=== PATIENT | female | born 1965 | race Caucasian/White ===

== ENCOUNTER 2020-04-10 07:06 | Emergency (ER) | payer BC, MEDICAID ==
--- NOTE | 2020-04-10 07:30 | ERPHSYRPT ---
- History of Present Illness Time Seen by Provider: 04/10/20 07:10 Historian: patient Exam Limitations: no limitations Patient Subjective Stated Complaint: PT states "I have been on vacation and I have been in bed most of it. I am on a new blood pressure medicine from Dr. retana and my heart rate has been up lately as well" Triage Nursing Assessment: Pt presented alert and oriented X 3, skin pwd. pt ambulates with an upright steady gait, able to speak in clear full sentences pt in no apparent respiratory distress. Physician History: Patient is a 55-year-old female presents to our ED with complaints of substernal chest pain. Patient describes her pain as an ache that is well localized. No radiation. Patient states "it feels like my heart is pounding". Patient advises that she recently returned from a vacation. Patient states that she did not do much during her vacation because she was not feeling right. Patient also advises that she was recently started on a blood pressure medication. Patient states her blood pressure was 200 systolic during her last primary care office visit. Symptoms are mild to moderate intensity. No specific worsening or improving factors. Patient is a smoker. Patient states she has got a significant family history of cardiovascular disease. Patient is otherwise generally healthy. She also admits that she has been under a considerable amount of stress. Patient voices no other complaints at this time. Timing/Duration: today Activities at Onset: none Quality: aching Location: substernal Chest Pain Radiation: no radiation Severity of Pain-Max: moderate Severity of Pain-Current: mild Modifying Factors: Improves With: nothing Associated Symptoms: nausea, vomiting, cough, No abdominal pain, No shortness of breath, No fever, No swelling/lump in chest Prior Chest Pain/Cardiac Workup: no prior chest pain Nitro Today/Relief: no nitro taken today Aspirin Treatment Today: no aspirin today Allergies/Adverse Reactions: Penicillins Allergy (Severe, Verified 04/10/20 07:14) Swelling Home Medications: Hydrocodone/Acetaminophen [Hydrocodone-Acetamin 7.5-325] 1 tab PO DAILY 04/10/20 [History] Lisinopril/Hydrochlorothiazide [Lisinopril-Hctz 20-12.5 mg Tab] 1 tab PO DAILY 04/10/20 [History] Omeprazole 40 mg PO DAILY 04/10/20 [History] Hx Tetanus, Diphtheria Vaccination/Date Given: No Hx Influenza Vaccination/Date Given: No Hx Pneumococcal Vaccination/Date Given: No Immunizations Up to Date: Yes Travel Risk - International Travel Have you traveled outside of the country in past 3 weeks: No - Coronavirus Screening Are you exhibiting any of the following symptoms?: No Close contact with a COVID-19 positive Pt in past 14-21 Days: No - Review of Systems Constitutional: No Symptoms, No Fever, No Chills Eyes: No Symptoms Ears, Nose, & Throat: No Symptoms Respiratory: No Symptoms, No Cough, No Dyspnea Cardiac: No Symptoms, No Chest Pain, No Edema, No Syncope Abdominal/Gastrointestinal: No Symptoms, No Abdominal Pain, No Nausea, No Vomiting, No Diarrhea Genitourinary Symptoms: No Symptoms, No Dysuria Musculoskeletal: No Symptoms, No Back Pain, No Neck Pain Skin: No Symptoms, No Rash Neurological: No Symptoms, No Dizziness, No Focal Weakness, No Sensory Changes Psychological: No Symptoms Endocrine: No Symptoms Hematologic/Lymphatic: No Symptoms Immunological/Allergic: No Symptoms All Other Systems: Reviewed and Negative - Past Medical History Pertinent Past Medical History: Yes Neurological History: Migraines, Other Cardiac History: Hypertension Respiratory History: No Pertinent History Endocrine Medical History: No Pertinent History Musculoskeletal History: Osteoarthritis, Osteoporosis GI Medical History: GERD - Past Surgical History Past Surgical History: Yes Musculoskeletal: Orthopedic Surgery Female Surgical History: Other Other Surgical History: right hand. uterine cancer - Social History Smoking Status: Current every day smoker How long have you smoked: years Exposure to second hand smoke: Yes Drug Use: none Patient Lives Alone: Yes - Female History Hx Now: No - Nursing Vital Signs Nursing Vital Signs: Initial Vital Signs Temperature 97.5 F 04/10/20 07:07 Pulse Rate 98 H 04/10/20 07:07 Respiratory Rate 18 04/10/20 07:07 Blood Pressure 190/108 04/10/20 07:07 O2 Sat by Pulse Oximetry 100 04/10/20 07:07 Pain Scale Pain Intensity 0 - Physical Exam General Appearance: no apparent distress, alert Eye Exam: PERRL/EOMI, eyes nml inspection Ears, Nose, Throat Exam: normal ENT inspection, moist mucous membranes Neck Exam: normal inspection, non-tender, supple, full range of motion Respiratory Exam: normal breath sounds, lungs clear, No respiratory distress Cardiovascular Exam: regular rate/rhythm, normal heart sounds Gastrointestinal/Abdomen Exam: soft, No tenderness, No mass Back Exam: normal inspection, No CVA tenderness, No vertebral tenderness Extremity Exam: normal inspection, normal range of motion Neurologic Exam: alert, oriented x 3, cooperative, normal mood/affect, sensation nml, No motor deficits Skin Exam: normal color, warm, dry Lymphatic Exam: No adenopathy SpO2 Interpretation: normal SpO2: 100 O2 Delivery: Room Air - Course Nursing assessment & vital signs reviewed: Yes EKG Interpreted by Me: RATE (97), Sinus Rhythm, NORMAL AXIS, NORMAL INTERVALS - Radiology Exams Chest X-ray Interpretation: Teleradiologist Report (lung granuloma, Nl bony thorax, no acute findings. ) - CT Exams Chest CT Interpretation: Tele-radiologist Report (Pulmonary emphysema, lung granuloma, right and left lung nodules both require follow-up. Wedging of T12 had evidence of scoliosis.) Ordered Tests: Active Orders 24 hr Category Date Time Status Public Health Educator STAT Care 04/10/20 07:27 Active EKG-ER Only STAT Care 04/10/20 07:26 Active IV Insertion STAT Care 04/10/20 07:26 Active Pulse Oximetry (ED) STAT Care 04/10/20 07:26 Active CHEST 1 VIEW (PORTABLE) Stat Exams 04/10/20 07:27 Completed CHEST WITH CONTRAST [CT] Stat Exams 04/10/20 08:12 Completed CBC W DIFF Stat Lab 04/10/20 07:17 Completed CMP Stat Lab 04/10/20 07:17 Completed D-DIMER QUANTITATIVE Stat Lab 04/10/20 07:17 Completed MAGNESIUM Stat Lab 04/10/20 07:17 Completed NT PRO BNP Stat Lab 04/10/20 07:17 Completed TROPONIN Q3H Lab 04/10/20 07:17 Completed TROPONIN Q3H Lab 04/10/20 09:45 Completed TROPONIN Q3H Lab 04/10/20 13:30 Ordered TROPONIN Q3H Lab 04/10/20 16:30 Ordered TROPONIN Q3H Lab 04/10/20 19:30 Ordered TSH, 3RD Generation Stat Lab 04/10/20 07:55 Completed UA W/RFX UR CULTURE Stat Lab 04/10/20 09:49 Completed Medication Summary Discontinued Medications Generic Name Dose Route Start Last Admin Trade Name Freq PRN Reason Stop Dose Admin Albuterol/Ipratropium 3 ml 04/10/20 08:23 04/10/20 08:31 Duoneb 0.5-3 Mg/3 Ml Neb IH 04/10/20 08:24 Not Given STAT ONE Albuterol/Ipratropium Confirm 04/10/20 08:37 Duoneb 0.5-3 Mg/3 Ml Neb Administered 04/10/20 08:38 Dose 3 ml IH .STK-MED ONE Potassium Chloride 40 meq 04/10/20 09:28 04/10/20 09:43 Klor Con 10 Meq PO 04/10/20 09:29 40 meq STAT ONE Administration Potassium Chloride Confirm 04/10/20 09:41 Klor Con 10 Meq Administered 04/10/20 09:42 Dose 40 meq PO .STK-MED ONE Prednisone 60 mg 04/10/20 08:23 04/10/20 08:31 Deltasone 20 Mg PO 04/10/20 08:24 Not Given STAT ONE Lab/Rad Data: Laboratory Result Diagrams 04/10/20 07:17 04/10/20 07:17 Laboratory Results 04/10/20 04/10/20 04/10/20 Range/Units 09:49 09:45 07:55 WBC (4.0-10.5) K/mm3 RBC (4.1-5.4) M/mm3 Hgb (12.0-16.0) gm/dl Hct (35-47) % MCV (78-100) fl MCH (26-32) pg MCHC (32-36) g/dl RDW (11.5-14.0) % Plt Count (150-450) K/mm3 MPV (7.5-11.0) fl Gran % (36.0-66.0) % Eos # (Auto) (0-0.5) Absolute Lymphs (auto) (1.0-4.6) Absolute Monos (auto) (0.0-1.3) Lymphocytes % (24.0-44.0) % Monocytes % (0.0-12.0) % Eosinophils % (0.00-5.0) % Basophils % (0.0-0.4) % Absolute Granulocytes (1.4-6.9) Basophils # (0-0.4) D-Dimer (215-500) ng/mL Sodium (137-145) mmol/L Potassium (3.5-5.1) mmol/L Chloride (98-107) mmol/L Carbon Dioxide (22-30) mmol/L Anion Gap (5-15) MEQ/L BUN (7-17) mg/dL Creatinine (0.52-1.04) mg/dL Estimated GFR ML/MIN Glucose (74-106) mg/dL Calcium (8.4-10.2) mg/dL Magnesium (1.6-2.3) mg/dL Total Bilirubin (0.2-1.3) mg/dL AST (14-36) U/L ALT (0-35) U/L Alkaline Phosphatase (38-126) U/L Troponin I < 0.012 (0.000-0.034) ng/mL NT-Pro-B Natriuret Pep (0-900) pg/mL Serum Total Protein (6.3-8.2) g/dL Albumin (3.5-5.0) g/dL TSH 3rd Generation 0.879 (0.47-4.68) mIU/L Urine Color STRAW (YELLOW) Urine Appearance SLIGHTLY CLOUDY (CLEAR) Urine pH 8.0 (5-6) Ur Specific [place] 1.029 (1.005-1.025) Urine Protein NEGATIVE (Negative) Urine Ketones NEGATIVE (NEGATIVE) Urine Blood NEGATIVE (0-5) Julian/ul Urine Nitrite NEGATIVE (NEGATIVE) Urine Bilirubin NEGATIVE (NEGATIVE) Urine Urobilinogen NEGATIVE (0-1) mg/dL Ur Leukocyte Esterase NEGATIVE (NEGATIVE) Urine WBC (Auto) 0-2 (0-5) /HPF Urine RBC (Auto) NONE SEEN (0-2) /HPF U Epithel Cells (Auto) FEW (FEW) /HPF Urine Bacteria (Auto) RARE (NEGATIVE) /HPF Urine Culture Reflexed NO (NO) Urine Glucose NEGATIVE (NEGATIVE) mg/dL 04/10/20 04/10/20 04/10/20 Range/Units 07:17 07:17 07:17 WBC (4.0-10.5) K/mm3 RBC (4.1-5.4) M/mm3 Hgb (12.0-16.0) gm/dl Hct (35-47) % MCV (78-100) fl MCH (26-32) pg MCHC (32-36) g/dl RDW (11.5-14.0) % Plt Count (150-450) K/mm3 MPV (7.5-11.0) fl Gran % (36.0-66.0) % Eos # (Auto) (0-0.5) Absolute Lymphs (auto) (1.0-4.6) Absolute Monos (auto) (0.0-1.3) Lymphocytes % (24.0-44.0) % Monocytes % (0.0-12.0) % Eosinophils % (0.00-5.0) % Basophils % (0.0-0.4) % Absolute Granulocytes (1.4-6.9) Basophils # (0-0.4) D-Dimer 1065 H* (215-500) ng/mL Sodium 140 (137-145) mmol/L Potassium 3.3 L (3.5-5.1) mmol/L Chloride 104 (98-107) mmol/L Carbon Dioxide 26 (22-30) mmol/L Anion Gap 13.5 (5-15) MEQ/L BUN 10 (7-17) mg/dL Creatinine 0.85 (0.52-1.04) mg/dL Estimated GFR > 60.0 ML/MIN Glucose 128 H (74-106) mg/dL Calcium 9.9 (8.4-10.2) mg/dL Magnesium 2.1 (1.6-2.3) mg/dL Total Bilirubin 0.50 (0.2-1.3) mg/dL AST 37 H (14-36) U/L ALT 27 (0-35) U/L Alkaline Phosphatase 153 H (38-126) U/L Troponin I < 0.012 (0.000-0.034) ng/mL NT-Pro-B Natriuret Pep 61.6 (0-900) pg/mL Serum Total Protein 9.1 H (6.3-8.2) g/dL Albumin 4.7 (3.5-5.0) g/dL TSH 3rd Generation (0.47-4.68) mIU/L Urine Color (YELLOW) Urine Appearance (CLEAR) Urine pH (5-6) Ur Specific [place] (1.005-1.025) Urine Protein (Negative) Urine Ketones (NEGATIVE) Urine Blood (0-5) Julian/ul Urine Nitrite (NEGATIVE) Urine Bilirubin (NEGATIVE) Urine Urobilinogen (0-1) mg/dL Ur Leukocyte Esterase (NEGATIVE) Urine WBC (Auto) (0-5) /HPF Urine RBC (Auto) (0-2) /HPF U Epithel Cells (Auto) (FEW) /HPF Urine Bacteria (Auto) (NEGATIVE) /HPF Urine Culture Reflexed (NO) Urine Glucose (NEGATIVE) mg/dL 04/10/20 Range/Units 07:17 WBC 6.9 (4.0-10.5) K/mm3 RBC 4.75 (4.1-5.4) M/mm3 Hgb 15.0 (12.0-16.0) gm/dl Hct 44.4 (35-47) % MCV 93.5 (78-100) fl MCH 31.6 (26-32) pg MCHC 33.8 (32-36) g/dl RDW 13.8 (11.5-14.0) % Plt Count 314 (150-450) K/mm3 MPV 10.7 (7.5-11.0) fl Gran % 52.3 (36.0-66.0) % Eos # (Auto) 0.18 (0-0.5) Absolute Lymphs (auto) 2.67 (1.0-4.6) Absolute Monos (auto) 0.45 (0.0-1.3) Lymphocytes % 38.5 (24.0-44.0) % Monocytes % 6.5 (0.0-12.0) % Eosinophils % 2.6 (0.00-5.0) % Basophils % 0.1 (0.0-0.4) % Absolute Granulocytes 3.63 (1.4-6.9) Basophils # 0.01 (0-0.4) D-Dimer (215-500) ng/mL Sodium (137-145) mmol/L Potassium (3.5-5.1) mmol/L Chloride (98-107) mmol/L Carbon Dioxide (22-30) mmol/L Anion Gap (5-15) MEQ/L BUN (7-17) mg/dL Creatinine (0.52-1.04) mg/dL Estimated GFR ML/MIN Glucose (74-106) mg/dL Calcium (8.4-10.2) mg/dL Magnesium (1.6-2.3) mg/dL Total Bilirubin (0.2-1.3) mg/dL AST (14-36) U/L ALT (0-35) U/L Alkaline Phosphatase (38-126) U/L Troponin I (0.000-0.034) ng/mL NT-Pro-B Natriuret Pep (0-900) pg/mL Serum Total Protein (6.3-8.2) g/dL Albumin (3.5-5.0) g/dL TSH 3rd Generation (0.47-4.68) mIU/L Urine Color (YELLOW) Urine Appearance (CLEAR) Urine pH (5-6) Ur Specific [place] (1.005-1.025) Urine Protein (Negative) Urine Ketones (NEGATIVE) Urine Blood (0-5) Julian/ul Urine Nitrite (NEGATIVE) Urine Bilirubin (NEGATIVE) Urine Urobilinogen (0-1) mg/dL Ur Leukocyte Esterase (NEGATIVE) Urine WBC (Auto) (0-5) /HPF Urine RBC (Auto) (0-2) /HPF U Epithel Cells (Auto) (FEW) /HPF Urine Bacteria (Auto) (NEGATIVE) /HPF Urine Culture Reflexed (NO) Urine Glucose (NEGATIVE) mg/dL - Progress Progress: improved Air Movement: good Progress Note: 04/10/20 11:19 Patient reassessed. Patient has no chest pain. Cardiac troponin negative x2. EKG negative as well. Patient took her blood pressure medication while in our ED. Blood pressure down to 120 systolic. D-dimer positive. Lung nodules observed on her CTA chest. The findings will need to be followed up. I advised patient admission for cardiac rule out/stress test and patient declined admission for further work-up. I spoke to Dr. Retana our patient's primary care physician regarding patient's visit today. In light of her resolved chest pain, negative troponin x2 patient will be discharged home. Dr. Retana is aware of patient's lung nodules as well that will need follow-up. Patient agrees Blood Culture(s) Obtained: No Antibiotics given: No Counseled pt/family regarding: lab results, diagnosis, need for follow-up, rad results, smoking cessation - Departure Departure Disposition: Home Clinical Impression: Chest pain, Pulmonary emphysema, Lung nodule, Scoliosis, Hypokalemia, Hypertension Condition: Stable Critical Care Time: No Referrals: LEANA RETANA MD [Primary Care Provider] - Instructions: Chronic Obstructive Pulmonary Disease Additional Instructions: Please follow-up with Dr. Retana within 48 hours for reevaluation. You will need follow-up regarding the lung nodules observed on today's CT chest. You will also likely require further work-up regarding your chest pain. Discharge/Care Plan TOYIN PEDRO was seen on 04/10/20 in the Emergency Room. The patient was counseled regarding Diagnosis,Lab results, Imaging studies, need for follow up and when to return to the Emergency Room. Prescriptions given: Discharge Note I have spoken with the patient and/or caregivers. I have explained the patient's condition, diagnosis and treatment plan based on the information available to me at this time. I have answered the patient's and/or caregiver's questions and addressed any concerns. The patient and/or caregivers have as good understanding of the patient's diagnosis, condition and treatment plan as can be expected at this point. The vital signs have been stable. The patient's condition is stable and appropriate for discharge from the emergency department. The patient will pursue further outpatient evaluation with the primary care physician or other designated or consulting physician as outlined in the discharge instructions. The patient and/or caregivers are agreeable to this plan of care and follow-up instructions have been explained in detail. The patient and/or caregivers have received these instruction. The patient/and or caregivers are aware that any significant change in condition or worsening of symptoms should prompt an immediate return to this or the closest emergency department or call 911.
[2020-04-10 07:41] LABS: Absolute Neutrophil Ct (ANC) 3.63 (1.4-6.9); BASOPHIL % 0.1 % (0.0-0.4); Basophil (Absolute #) 0.01 (0-0.4); Eosinophil % 2.6 % (0.00-5.0); Eosinophil (Absolute #) 0.18 (0-0.5); Hematocrit 44.4 % (35-47); Lymphocyte (Absolute #) 2.67 (1.0-4.6); Lymphocytes % 38.5 % (24.0-44.0); Mean Cell Volume 93.5 fl (78-100); Mean Corpuscular Hemoglobin 31.6 pg (26-32); Mean Corpuscular Hgb Concent. 33.8 g/dl (32-36); Mean Platelet Volume 10.7 fl (7.5-11.0); Monocyte (Absolute #) 0.45 (0.0-1.3); Monocytes % 6.5 % (0.0-12.0); Neutrophil % 52.3 % (36.0-66.0); Platelet Count 314 K/mm3 (150-450); Red Blood Count 4.75 M/mm3 (4.1-5.4); Red Cell Distribution Width 13.8 % (11.5-14.0); White Blood Count 6.9 K/mm3 (4.0-10.5)
[2020-04-10 08:00] LABS: ALBUMIN 4.7 g/dL (3.5-5.0); ALKALINE PHOSPHATASE 153 U/L (38-126); ANION GAP 13.5 MEQ/L (5-15); BLOOD UREA NITROGEN 10 mg/dL (7-17); CHLORIDE 104 mmol/L (98-107); Calcium 9.9 mg/dL (8.4-10.2); Carbon Dioxide 26 mmol/L (22-30); Creatinine 1 0.85 mg/dL (0.52-1.04); Glucose 128 mg/dL (74-106); MAGNESIUM 2.1 mg/dL (1.6-2.3); NT PRO BNP 61.6 pg/mL (0-900); Potassium 3.3 mmol/L (3.5-5.1); SGOT/AST 37 U/L (14-36); SGPT/ALT 27 U/L (0-35); SODIUM 140 mmol/L (137-145); Total Protein 9.1 g/dL (6.3-8.2)
[2020-04-10] MEDS ORDERED: DELTASONE 20 MG PO ONE (08:23)
[2020-04-10] MEDS ORDERED: DUONEB 0.5-3 MG/3 ml Neb IH ONE ×2 (08:23→08:37)
--- NOTE | 2020-04-10 09:08 | XRAY ---
Indication: Chest pain and elevated d-dimer. Multiple contiguous images obtained through the chest using 80 cc Isovue 370 contrast and PE protocol. Comparison: None There is good opacification of the pulmonary arteries to include the lobar and segmental branches. No filling defect or pulmonary embolus. Heart is not enlarged. Aorta is mildly arteriosclerotic without aneurysm/dissection. No pathologic mediastinal/hilar lymphadenopathy. Lungs are inflated with mild diffuse pulmonary emphysema, minimal bilateral dependent atelectasis, and 2 left lower lobe calcified granulomas. 7 mm noncalcified subpleural nodule in the right lower lobe (image 53, series 3), 6 mm noncalcified subpleural nodule right lower lobe (image 36), 7 mm noncalcified subpleural nodule left lower lobe (image 54), and 5 mm noncalcified subpleural nodule left lower lobe (image 54). No infiltrate or effusion. Bony thorax intact with minimal degenerative changes throughout the spine and minimal double curvature scoliosis. T12 segment demonstrates remote appearing minimal anterior wedging either developmental versus old fracture. Limited upper abdomen unremarkable. Impression: 1. Negative pulmonary embolus. No acute cardiopulmonary normalities. 2. Diffuse pulmonary emphysema. 3. A few bilateral noncalcified micronodules as detailed. Findings could be granulomatous as there is evidence for old granulomatous disease elsewhere. Malignancy not completely excluded. Outside comparison studies would be of benefit. If not, recommend follow-up per Fleischner guidelines. 4. Chronic bony findings.
--- NOTE | 2020-04-10 09:08 | XRAY ---
Indication: Chest pain. Comparison: March 09, 2015. Portable chest again demonstrates normal heart and lungs with left lung calcified granuloma. Bony thorax intact again with mild double curvature scoliosis. No new/acute findings.
[2020-04-10] MEDS ORDERED: Klor Con 10 MEQ PO ONE ×2 (09:28→09:41)
[2020-04-10 10:02] VITALS: PULSE 88
[2020-04-10 10:05] LABS: Appearance SLIGHTLY CLOUDY (CLEAR); Bacteria RARE /HPF (NEGATIVE); Bilirubin NEGATIVE (NEGATIVE); Blood NEGATIVE Ery/ul (0-5); Epithelial Cells FEW /HPF (FEW); Glucose NEGATIVE (NEGATIVE); Ketones NEGATIVE (NEGATIVE); Leukocyte Esterase NEGATIVE (NEGATIVE); Nitrite NEGATIVE (NEGATIVE); Protein,Urine Dip NEGATIVE (Negative); Specific Gravity 1.029 (1.005-1.025); Urobilinogen NEGATIVE mg/dL (0-1); WBC 0-2 /HPF (0-5)
[2020-04-10 10:28] LABS: RBC NONE SEEN /HPF (0-2)
[2020-04-10 11:20] VITALS: BP 117/77; O2SAT 100
== END 2020-04-10 11:28 | disposition home or self-care (01) ==
LOC: ED 07:06
DX: R07.9 Chest pain, unspecified (principal); J43.9 Emphysema, unspecified; R91.8 Other nonspecific abnormal finding of lung field; M41.9 Scoliosis, unspecified; E87.6 Hypokalemia; I10 Essential (primary) hypertension; F17.210 Nicotine dependence, cigarettes, uncomplicated; Z79.899 Other long term (current) drug therapy
CPT/HCPCS: 36000; 36415; 71045; 71260; 80053; 81001; 83735; 83880; 84443; 84484; 85025; 85379; 93005; 93041; 94760; 99284; A9270-GY

== ENCOUNTER 2020-04-12 12:24 | Emergency (ER) | payer MEDICAID ==
--- NOTE | 2020-04-12 12:40 | ERPHSYRPT ---
- History of Present Illness Time Seen by Provider: 04/12/20 12:30 Patient Subjective Stated Complaint: pt here for chest pain to center of chest with sob and dizziness, she was seen here friday night for the same thng Triage Nursing Assessment: pt alert, resp easy, skin w/d/p. has face mask on, no edema,no cough Physician History: Patient is a 55-year-old female who presents to our ED with complaints of chest pain shortness of breath and dizziness. Chest pain described as an ache that is substernal. Patient was in our ED 2 days ago for the same. Patient was worked up including 2- troponins and a CTA of the chest. Patient was discharged and supposed to follow-up with her primary care doctor but has not done so. Patient states she was at work when her symptoms started. Patient became very concerned and came to our ED for further evaluation and treatment. Symptoms are mild to moderate in intensity. No specific worsening improving factors. Patient is a smoker. Patient also advised that she is got a significant family history of cardiovascular disease. Patient voices no other complaints or concerns at this time. Timing/Duration: today Activities at Onset: activity Quality: aching Location: substernal Chest Pain Radiation: no radiation Severity of Pain-Max: moderate Severity of Pain-Current: mild Modifying Factors: Improves With: exertion Associated Symptoms: shortness of breath, dizziness, No fever Nitro Today/Relief: no nitro taken today Aspirin Treatment Today: no aspirin today Allergies/Adverse Reactions: Penicillins Allergy (Severe, Verified 04/12/20 12:34) Swelling Home Medications: Hydrocodone/Acetaminophen [Hydrocodone-Acetamin 7.5-325] 1 tab PO DAILY 04/10/20 [History] Lisinopril/Hydrochlorothiazide [Lisinopril-Hctz 20-12.5 mg Tab] 1 tab PO DAILY 04/10/20 [History] Omeprazole 40 mg PO DAILY 04/10/20 [History] Potassium Chloride 1 ea DAILY 04/12/20 [History] Hx Tetanus, Diphtheria Vaccination/Date Given: No Hx Influenza Vaccination/Date Given: No Hx Pneumococcal Vaccination/Date Given: No Immunizations Up to Date: Yes Travel Risk - International Travel Have you traveled outside of the country in past 3 weeks: No - Coronavirus Screening Are you exhibiting any of the following symptoms?: Yes Symptoms: Shortness of Breath Close contact with a COVID-19 positive Pt in past 14-21 Days: No - Review of Systems Constitutional: No Symptoms, No Fever, No Chills Eyes: No Symptoms Ears, Nose, & Throat: No Symptoms Respiratory: No Symptoms, No Cough, No Dyspnea Cardiac: No Symptoms, No Chest Pain, No Edema, No Syncope Abdominal/Gastrointestinal: No Symptoms, No Abdominal Pain, No Nausea, No Vomiting, No Diarrhea Genitourinary Symptoms: No Symptoms, No Dysuria Musculoskeletal: No Symptoms, No Back Pain, No Neck Pain Skin: No Symptoms, No Rash Neurological: No Symptoms, No Dizziness, No Focal Weakness, No Sensory Changes Psychological: No Symptoms Endocrine: No Symptoms Hematologic/Lymphatic: No Symptoms Immunological/Allergic: No Symptoms All Other Systems: Reviewed and Negative - Past Medical History Pertinent Past Medical History: Yes Neurological History: Migraines, Other Cardiac History: Hypertension Respiratory History: No Pertinent History Endocrine Medical History: No Pertinent History Musculoskeletal History: Osteoarthritis, Osteoporosis GI Medical History: GERD - Past Surgical History Past Surgical History: Yes Musculoskeletal: Orthopedic Surgery Female Surgical History: Other Other Surgical History: left hand. uterine cancer ablation - Social History Smoking Status: Current every day smoker How long have you smoked: years Exposure to second hand smoke: Yes Drug Use: none Patient Lives Alone: Yes - Female History Hx Last Menstrual Period: post Hx Now: No - Nursing Vital Signs Nursing Vital Signs: Initial Vital Signs Temperature 97.1 F 04/12/20 12:27 Pulse Rate 90 04/12/20 12:27 Respiratory Rate 16 04/12/20 12:27 Blood Pressure 124/77 04/12/20 12:27 O2 Sat by Pulse Oximetry 100 04/12/20 12:27 Pain Scale Pain Intensity 0 - Physical Exam General Appearance: no apparent distress, alert Eye Exam: PERRL/EOMI, eyes nml inspection Ears, Nose, Throat Exam: normal ENT inspection, moist mucous membranes Neck Exam: normal inspection, non-tender, supple, full range of motion Respiratory Exam: normal breath sounds, lungs clear, No respiratory distress Cardiovascular Exam: regular rate/rhythm, normal heart sounds Gastrointestinal/Abdomen Exam: soft, No tenderness, No mass Back Exam: normal inspection, No CVA tenderness, No vertebral tenderness Extremity Exam: normal inspection, normal range of motion Neurologic Exam: alert, oriented x 3, cooperative, normal mood/affect, sensation nml, No motor deficits Skin Exam: normal color, warm, dry Lymphatic Exam: No adenopathy SpO2 Interpretation: normal SpO2: 100 O2 Delivery: Room Air - Course Nursing assessment & vital signs reviewed: Yes EKG Interpreted by Me: RATE (86), Sinus Rhythm, NORMAL AXIS, NORMAL INTERVALS - Radiology Exams Chest X-ray Interpretation: Teleradiologist Report (Audible chest continues to demonstrate normal heart and lungs with incidental left lung calcified granuloma. No new acute findings.) Ordered Tests: Active Orders 24 hr Category Date Time Status Services Coordinator STAT Care 04/12/20 13:42 Active EKG-ER Only STAT Care 04/12/20 13:41 Active IV Insertion STAT Care 04/12/20 13:41 Active Pulse Oximetry (ED) STAT Care 04/12/20 13:41 Active CHEST 1 VIEW (PORTABLE) Stat Exams 04/12/20 13:42 Completed CBC W DIFF Stat Lab 04/12/20 14:05 Completed CMP Stat Lab 04/12/20 14:05 Completed LIPASE Stat Lab 04/12/20 14:05 Completed MAGNESIUM Stat Lab 04/12/20 14:05 Completed NT PRO BNP Stat Lab 04/12/20 14:05 Completed TROPONIN Q3H Lab 04/12/20 14:05 Completed TROPONIN Q3H Lab 04/12/20 16:40 Completed TROPONIN Q3H Lab 04/12/20 19:45 Ordered TROPONIN Q3H Lab 04/12/20 22:45 Ordered TROPONIN Q3H Lab 04/13/20 01:45 Ordered UA W/RFX UR CULTURE Stat Lab 04/12/20 15:36 Completed Transfer Order Routine Transfer 04/12/20 Ordered Medication Summary Generic Name Dose Route Start Last Admin Trade Name Tawny PRN Reason Stop Dose Admin Levofloxacin/Dextrose 500 mg in 100 mls @ 100 mls/hr 04/12/20 17:44 04/12/20 18:15 Levofloxacin 500mg/100ml D5w IV 04/12/20 18:43 Not Given STAT STA Heparin Sodium/Dextrose 250 mls @ 10 mls/hr 04/12/20 18:00 Heparin 25,000 Units/D5w 250ml Premix IV 05/12/20 17:59 .Q24H ZAID Heparin Sodium/Dextrose 25,000 units in 250 mls @ 10 mls/hr 04/12/20 18:00 Heparin 25,000 Units/D5w 250ml Premix IV 05/12/20 17:59 .Q24H ZAID Discontinued Medications Generic Name Dose Route Start Last Admin Trade Name Tawny PRN Reason Stop Dose Admin Aspirin 324 mg 04/12/20 13:40 04/12/20 13:54 Baby Aspirin 81 Mg Chew PO 04/12/20 13:41 324 mg STAT ONE Administration Aspirin Confirm 04/12/20 13:48 Baby Aspirin 81 Mg Chew Administered 04/12/20 13:49 Dose 324 mg .ROUTE .STK-MED ONE Ciprofloxacin Confirm 04/12/20 17:37 Cipro 500 Mg Administered 04/12/20 17:38 Dose 500 mg .ROUTE .STK-MED ONE Heparin Sodium/Dextrose 250 mls @ 10 mls/hr 04/12/20 18:00 Heparin 25,000 Units/D5w 250ml Premix IV 05/12/20 17:59 .Q24H ZAID Levofloxacin/Dextrose Confirm 04/12/20 17:53 Levofloxacin 500mg/100ml D5w Administered 04/12/20 17:54 Dose 500 mg in 100 mls @ ud IV .STK-MED ONE Morphine Sulfate 2 mg 04/12/20 13:39 04/12/20 13:54 Morphine Sulfate 2 Mg Inj IV 04/12/20 13:40 2 mg STAT ONE Administration Morphine Sulfate Confirm 04/12/20 13:48 Morphine Sulfate 2 Mg Inj Administered 04/12/20 13:49 Dose 2 mg .ROUTE .STK-MED ONE Nitroglycerin 1 gm 04/12/20 17:38 04/12/20 18:00 Nitro-Bid 2% Ud Packets TOP 04/12/20 17:39 1 gm STAT ONE Administration Nitroglycerin Confirm 04/12/20 17:53 Nitro-Bid 2% Ud Packets Administered 04/12/20 17:54 Dose 1 gm .ROUTE .STK-MED ONE Lab/Rad Data: Laboratory Result Diagrams 04/12/20 14:05 04/12/20 14:05 Laboratory Results 04/12/20 04/12/20 04/12/20 Range/Units 16:40 15:36 14:05 WBC (4.0-10.5) K/mm3 RBC (4.1-5.4) M/mm3 Hgb (12.0-16.0) gm/dl Hct (35-47) % MCV (78-100) fl MCH (26-32) pg MCHC (32-36) g/dl RDW (11.5-14.0) % Plt Count (150-450) K/mm3 MPV (7.5-11.0) fl Gran % (36.0-66.0) % Eos # (Auto) (0-0.5) Absolute Lymphs (auto) (1.0-4.6) Absolute Monos (auto) (0.0-1.3) Lymphocytes % (24.0-44.0) % Monocytes % (0.0-12.0) % Eosinophils % (0.00-5.0) % Basophils % (0.0-0.4) % Absolute Granulocytes (1.4-6.9) Basophils # (0-0.4) Sodium (137-145) mmol/L Potassium (3.5-5.1) mmol/L Chloride (98-107) mmol/L Carbon Dioxide (22-30) mmol/L Anion Gap (5-15) MEQ/L BUN (7-17) mg/dL Creatinine (0.52-1.04) mg/dL Estimated GFR ML/MIN Glucose (74-106) mg/dL Calcium (8.4-10.2) mg/dL Magnesium (1.6-2.3) mg/dL Total Bilirubin (0.2-1.3) mg/dL AST (14-36) U/L ALT (0-35) U/L Alkaline Phosphatase (38-126) U/L Troponin I 0.075 H* < 0.012 (0.000-0.034) ng/mL NT-Pro-B Natriuret Pep (0-900) pg/mL Serum Total Protein (6.3-8.2) g/dL Albumin (3.5-5.0) g/dL Lipase (23-300) U/L Urine Color YELLOW (YELLOW) Urine Appearance SLIGHTLY CLOUDY (CLEAR) Urine pH 5.0 (5-6) Ur Specific [place] 1.013 (1.005-1.025) Urine Protein NEGATIVE (Negative) Urine Ketones NEGATIVE (NEGATIVE) Urine Blood NEGATIVE (0-5) Julian/ul Urine Nitrite NEGATIVE (NEGATIVE) Urine Bilirubin NEGATIVE (NEGATIVE) Urine Urobilinogen NEGATIVE (0-1) mg/dL Ur Leukocyte Esterase MODERATE (NEGATIVE) Urine WBC (Auto) 11-15 (0-5) /HPF Urine RBC (Auto) 0-2 (0-2) /HPF U Hyaline Cast (Auto) 6-10 (0-2) /LPF U Epithel Cells (Auto) FEW (FEW) /HPF Urine Bacteria (Auto) RARE (NEGATIVE) /HPF U Non-Squamous Epi Cells RARE (FEW) /HPF Other Casts (Auto) 10-25 (NEGATIVE) /LPF Urine Mucus (Auto) SLIGHT (NEGATIVE) /HPF Urine Culture Reflexed NO (NO) Urine Glucose NEGATIVE (NEGATIVE) mg/dL 04/12/20 04/12/20 Range/Units 14:05 14:05 WBC 9.1 (4.0-10.5) K/mm3 RBC 4.03 L (4.1-5.4) M/mm3 Hgb 12.8 (12.0-16.0) gm/dl Hct 37.7 (35-47) % MCV 93.5 (78-100) fl MCH 31.8 (26-32) pg MCHC 34.0 (32-36) g/dl RDW 13.4 (11.5-14.0) % Plt Count 282 (150-450) K/mm3 MPV 10.4 (7.5-11.0) fl Gran % 72.7 H (36.0-66.0) % Eos # (Auto) 0.09 (0-0.5) Absolute Lymphs (auto) 1.65 (1.0-4.6) Absolute Monos (auto) 0.72 (0.0-1.3) Lymphocytes % 18.2 L (24.0-44.0) % Monocytes % 7.9 (0.0-12.0) % Eosinophils % 1.0 (0.00-5.0) % Basophils % 0.2 (0.0-0.4) % Absolute Granulocytes 6.60 (1.4-6.9) Basophils # 0.02 (0-0.4) Sodium 135 L (137-145) mmol/L Potassium 4.3 (3.5-5.1) mmol/L Chloride 101 (98-107) mmol/L Carbon Dioxide 26 (22-30) mmol/L Anion Gap 11.8 (5-15) MEQ/L BUN 12 (7-17) mg/dL Creatinine 1.15 H (0.52-1.04) mg/dL Estimated GFR 52.5 ML/MIN Glucose 98 (74-106) mg/dL Calcium 9.8 (8.4-10.2) mg/dL Magnesium 1.9 (1.6-2.3) mg/dL Total Bilirubin 0.50 (0.2-1.3) mg/dL AST 21 (14-36) U/L ALT 18 (0-35) U/L Alkaline Phosphatase 100 (38-126) U/L Troponin I (0.000-0.034) ng/mL NT-Pro-B Natriuret Pep 131 (0-900) pg/mL Serum Total Protein 8.2 (6.3-8.2) g/dL Albumin 4.4 (3.5-5.0) g/dL Lipase 78 (23-300) U/L Urine Color (YELLOW) Urine Appearance (CLEAR) Urine pH (5-6) Ur Specific [place] (1.005-1.025) Urine Protein (Negative) Urine Ketones (NEGATIVE) Urine Blood (0-5) Julian/ul Urine Nitrite (NEGATIVE) Urine Bilirubin (NEGATIVE) Urine Urobilinogen (0-1) mg/dL Ur Leukocyte Esterase (NEGATIVE) Urine WBC (Auto) (0-5) /HPF Urine RBC (Auto) (0-2) /HPF U Hyaline Cast (Auto) (0-2) /LPF U Epithel Cells (Auto) (FEW) /HPF Urine Bacteria (Auto) (NEGATIVE) /HPF U Non-Squamous Epi Cells (FEW) /HPF Other Casts (Auto) (NEGATIVE) /LPF Urine Mucus (Auto) (NEGATIVE) /HPF Urine Culture Reflexed (NO) Urine Glucose (NEGATIVE) mg/dL - Progress Progress: improved Air Movement: good (She has Medicare and some other insurance so wants to go ou t-of-pocket either place she does not) Progress Note: 04/12/20 18:20 Patient reassessed. Patient states her chest pain starting to recur. Initial troponin was within normal limits. Repeat troponin is positive at 0.075. Nitropaste applied. Heparin drip initiated. Patient received aspirin. We will transfer patient to [facility] with a diagnosis of NSTEMI. Plan of care discussed with patient. She agrees to transfer to [facility] for further evaluation and treatment. Patient was found to have urinary tract infection. Levaquin was initiated. Patient allergic to penicillin. Patient began to experience itching sensation at the extremity receiving the infusion. The infusion was immediately stopped. Patient was assessed. No compromise breathing no hives. No intraoral lesions. Patient's allergy profile was updated. Case discussed with Dr. Hernandez, [facility] ER physician who accepts transfer. 04/12/20 18:21 Blood Culture(s) Obtained: No Antibiotics given: No Counseled pt/family regarding: lab results, diagnosis, need for follow-up, rad results - Departure Departure Disposition: Transfer Clinical Impression: NSTEMI (non-ST elevated myocardial infarction), Cardiac enzymes elevated, Chest pain, UTI (urinary tract infection) Condition: Stable Critical Care Time: Yes Referrals: LEANA RETANA MD [Primary Care Provider] -
[2020-04-12] MEDS ORDERED: MORPHINE SULFATE 2 MG INJ IV ONE (13:39)
[2020-04-12] MEDS ORDERED: BABY ASPIRIN 81 MG CHEW PO ONE (13:40)
[2020-04-12] MEDS ORDERED: BABY ASPIRIN 81 MG CHEW ONE (13:48)
[2020-04-12] MEDS ORDERED: MORPHINE SULFATE 2 MG INJ ONE (13:48)
[2020-04-12 14:09] LABS: BASOPHIL % 0.2 % (0.0-0.4); Basophil (Absolute #) 0.02 (0-0.4); Eosinophil (Absolute #) 0.09 (0-0.5); Hematocrit 37.7 % (35-47); Hemoglobin 12.8 gm/dl (12.0-16.0); Lymphocyte (Absolute #) 1.65 (1.0-4.6); Lymphocytes % 18.2 % (24.0-44.0); Mean Cell Volume 93.5 fl (78-100); Mean Corpuscular Hemoglobin 31.8 pg (26-32); Mean Platelet Volume 10.4 fl (7.5-11.0); Monocyte (Absolute #) 0.72 (0.0-1.3); Monocytes % 7.9 % (0.0-12.0); Neutrophil % 72.7 % (36.0-66.0); Platelet Count 282 K/mm3 (150-450); Red Blood Count 4.03 M/mm3 (4.1-5.4); Red Cell Distribution Width 13.4 % (11.5-14.0); White Blood Count 9.1 K/mm3 (4.0-10.5)
--- NOTE | 2020-04-12 14:15 | XRAY ---
Indication: Chest pain. Comparison: April 10, 2020. Portable chest continues to demonstrate normal heart and lungs with incidental left lung calcified granuloma. No new/acute findings.
[2020-04-12 14:29] LABS: ALBUMIN 4.4 g/dL (3.5-5.0); ANION GAP 11.8 MEQ/L (5-15); BILIRUBIN,TOTAL 0.5 mg/dL (0.2-1.3); Calcium 9.8 mg/dL (8.4-10.2); Creatinine 1 1.15 mg/dL (0.52-1.04); MAGNESIUM 1.9 mg/dL (1.6-2.3); Potassium 4.3 mmol/L (3.5-5.1); Total Protein 8.2 g/dL (6.3-8.2)
[2020-04-12 16:06] LABS: Appearance SLIGHTLY CLOUDY (CLEAR); Bacteria RARE /HPF (NEGATIVE); Bilirubin NEGATIVE (NEGATIVE); Blood NEGATIVE Ery/ul (0-5); Epithelial Cells FEW /HPF (FEW); Glucose NEGATIVE (NEGATIVE); Ketones NEGATIVE (NEGATIVE); Leukocyte Esterase MODERATE (NEGATIVE); Mucus SLIGHT /HPF (NEGATIVE); Nitrite NEGATIVE (NEGATIVE); Non-Squamous Epithelial Cells RARE /HPF (FEW); Protein,Urine Dip NEGATIVE (Negative); RBC 0-2 /HPF (0-2); Specific Gravity 1.013 (1.005-1.025); Urobilinogen NEGATIVE mg/dL (0-1)
[2020-04-12 17:33] VITALS: BP 104/56
[2020-04-12] MEDS ORDERED: Cipro 500 MG ONE (17:37)
[2020-04-12] MEDS ORDERED: NITRO-BID 2% UD PACKETS TOP ONE (17:38)
[2020-04-12] MEDS ORDERED: Levofloxacin 500MG/100ML D5W 0 MG/0 ML BAG IV ONE (17:53)
[2020-04-12] MEDS ORDERED: NITRO-BID 2% UD PACKETS ONE (17:53)
[2020-04-12] MEDS ORDERED: Heparin 25,000 units/D5W 250ML PREMIX 250 ML IV SCH ×2 (18:00)
[2020-04-12] MEDS ORDERED: Heparin 25,000 units/D5W 250ML PREMIX 25,000 UNITS/250 ML BAG IV SCH (18:00)
[2020-04-12] MEDS: Levofloxacin 500MG/100ML D5W 500 MG/100 ML BAG IV STA ×2 (18:05→18:15)
[2020-04-12 19:16] VITALS: PULSE 74; O2SAT 98
== END 2020-04-12 19:19 | disposition home or self-care (01) ==
LOC: ED 12:24
DX: I21.3 ST elevation (STEMI) myocardial infarction of unspecified site (principal); R79.89 Other specified abnormal findings of blood chemistry; R07.9 Chest pain, unspecified; N39.0 Urinary tract infection, site not specified
CPT/HCPCS: 36000; 36415; 71045; 80053; 81001; 83690; 83735; 83880; 84484; 85025; 93005; 93041; 94760; 96365; 96374; 99285; J1644; J1956; J2270; A9270-GY

== ENCOUNTER 2020-04-21 17:42 | Emergency (ER) | payer BC, MEDICAID ==
[2020-04-21] MEDS ORDERED: NITRO-BID 2% UD PACKETS TOP ONE (17:49)
[2020-04-21] MEDS ORDERED: Zofran 4 MG/2 ML VIAL IV ONE (17:49)
[2020-04-21] MEDS ORDERED: MORPHINE SULFATE 4 MG INJ IV ONE (17:49)
[2020-04-21] MEDS ORDERED: Sodium Chloride 0.9% 1000 ML 1,000 ML IV SCH ×2 (18:00→21:45)
[2020-04-21] MEDS ORDERED: Zofran 4 MG/2 ML VIAL ONE (18:02)
[2020-04-21] MEDS ORDERED: NITRO-BID 2% UD PACKETS ONE (18:02)
[2020-04-21] MEDS ORDERED: MORPHINE SULFATE 4 MG INJ ONE (18:03)
[2020-04-21] MEDS ORDERED: Sodium Chloride 0.9% 1000 ML 1,000 ML ONE ×2 (18:03→21:44)
[2020-04-21 18:13] LABS: Absolute Neutrophil Ct (ANC) 4.58 (1.4-6.9); BASOPHIL % 0.2 % (0.0-0.4); Basophil (Absolute #) 0.02 (0-0.4); Eosinophil % 2.8 % (0.00-5.0); Eosinophil (Absolute #) 0.23 (0-0.5); Hematocrit 32.3 % (35-47); Hemoglobin 10.6 gm/dl (12.0-16.0); Lymphocyte (Absolute #) 2.84 (1.0-4.6); Lymphocytes % 34.1 % (24.0-44.0); Mean Cell Volume 96.7 fl (78-100); Mean Corpuscular Hemoglobin 31.7 pg (26-32); Mean Corpuscular Hgb Concent. 32.8 g/dl (32-36); Mean Platelet Volume 10.5 fl (7.5-11.0); Monocyte (Absolute #) 0.66 (0.0-1.3); Monocytes % 7.9 % (0.0-12.0); Platelet Count 330 K/mm3 (150-450); Red Blood Count 3.34 M/mm3 (4.1-5.4); Red Cell Distribution Width 13.6 % (11.5-14.0); White Blood Count 8.3 K/mm3 (4.0-10.5)
[2020-04-21 18:27] LABS: INR 1.11 (0.8-3.0); PROTIME 12.6 SECONDS (9.95-12.35)
[2020-04-21 18:30] LABS: PTT 26.8 SECONDS (25.3-37.0)
[2020-04-21] MEDS ORDERED: Keppra 500 MG/5 ML*** 1,000 MG in D5w 100ML Mini Bag 100 ML 100 ML IV ONE (18:35)
[2020-04-21 18:37] LABS: ALBUMIN 4.2 g/dL (3.5-5.0); ALKALINE PHOSPHATASE 105 U/L (38-126); ANION GAP 19.7 MEQ/L (5-15); BLOOD UREA NITROGEN 8 mg/dL (7-17); CHLORIDE 103 mmol/L (98-107); Calcium 9.1 mg/dL (8.4-10.2); Carbon Dioxide 18 mmol/L (22-30); Creatinine 1 1.01 mg/dL (0.52-1.04); Glucose 130 mg/dL (74-106); NT PRO BNP 262 pg/mL (0-900); Potassium 3.4 mmol/L (3.5-5.1); SGOT/AST 25 U/L (14-36); SGPT/ALT 13 U/L (0-35); SODIUM 137 mmol/L (137-145); Total Protein 7.7 g/dL (6.3-8.2)
[2020-04-21] MEDS ORDERED: Keppra 500 MG/5 ML ONE (18:37)
[2020-04-21] MEDS ORDERED: D5w 100ML Mini Bag 100 ML 100 ML IV ONE (18:38)
--- NOTE | 2020-04-21 18:40 | ERPHSYRPT ---
- History of Present Illness Time Seen by Provider: 04/21/20 17:45 Historian: patient Exam Limitations: no limitations Patient Subjective Stated Complaint: Pt states "My chest and back really hurt.". Medics state "we were dispatched for chest pain, pt had what appeared to be a seizure and then stopped breathing for approx 20 seconds and we had to bag her. Pt was then screaming in pain in her back." Triage Nursing Assessment: ON [place] pt was screaming in the background. PT arrived alert and oriented X 3, skin pwd Pt able to speak in clear full sentences pt grunting and unable to sit still. Pt had io in left proximal tib, 20 g iv in pt left ac. PT in no apparent respriatory distress. Physician History: 55 years old female chin, congestive heart failure, tobacco abuse presented in the ER with chief complaint of sudden onset central chest pain while she was driving back home from [employer]. Patient reports having intermittent chest pain for the last couple of weeks, was recently admitted at [facility] where she had a stress test done. Patient describes this as a sharp shooting/stabbing pain, moderate to severe intensity, taken 3 nitros and started to ease up. On the way to the ER patient had a episode of stiffness all over her body and quit breathing witnessed by EMS and was back for almost 20 seconds and she came back on her own. Currently patient rates 4/10 intensity pain without any shortness of breath, palpitations or wheezing. Denies fever chills but has mild chronic cough. Timing/Duration: hour(s) (2), sudden, worse Activities at Onset: rest Quality: sharpness, stabbing Location: central Chest Pain Radiation: no radiation Severity of Pain-Max: severe Severity of Pain-Current: moderate Modifying Factors: Improves With: nitroglycerin Prior Chest Pain/Cardiac Workup: stress test Nitro Today/Relief: 0.4 mg x 3 Aspirin Treatment Today: 81 mg x 4 Allergies/Adverse Reactions: Penicillins Allergy (Severe, Verified 04/12/20 12:34) Swelling levofloxacin [From Levaquin] Allergy (Verified 04/12/20 19:18) Home Medications: Aspirin [Aspirin EC] 81 mg PO DAILY 04/21/20 [History] Atorvastatin Calcium [Lipitor] 80 mg PO DAILY 04/21/20 [History] Hydrocodone/Acetaminophen [Hydrocodone-Acetamin 7.5-325] 1 tab PO DAILY 04/21/20 [History] Lisinopril 10 mg [Zestril 10 MG] 10 mg PO DAILY 04/21/20 [History] Metoprolol Tartrate 25 mg PO DAILY 04/21/20 [History] Nitroglycerin 0.4 mg SL DAILY PRN 04/21/20 [History] Hx Tetanus, Diphtheria Vaccination/Date Given: No Hx Influenza Vaccination/Date Given: No Hx Pneumococcal Vaccination/Date Given: No Immunizations Up to Date: Yes Travel Risk - International Travel Have you traveled outside of the country in past 3 weeks: No - Coronavirus Screening Are you exhibiting any of the following symptoms?: No Close contact with a COVID-19 positive Pt in past 14-21 Days: No - Review of Systems Constitutional: No Symptoms Eyes: No Symptoms Ears, Nose, & Throat: No Symptoms Respiratory: Cough Cardiac: Chest Pain Abdominal/Gastrointestinal: No Symptoms Genitourinary Symptoms: No Symptoms Musculoskeletal: Back Pain (Chronic) Skin: No Symptoms Neurological: Headache, Seizure Psychological: No Symptoms Endocrine: No Symptoms Hematologic/Lymphatic: No Symptoms Immunological/Allergic: No Symptoms - Past Medical History Pertinent Past Medical History: Yes Neurological History: Migraines, Other Cardiac History: Hypertension Respiratory History: No Pertinent History Endocrine Medical History: No Pertinent History Musculoskeletal History: Osteoarthritis, Osteoporosis GI Medical History: GERD - Past Surgical History Past Surgical History: Yes Musculoskeletal: Orthopedic Surgery Female Surgical History: Other Other Surgical History: left hand. uterine cancer ablation - Social History Smoking Status: Current every day smoker How long have you smoked: years Exposure to second hand smoke: Yes Drug Use: none Patient Lives Alone: Yes - Female History Hx Last Menstrual Period: ablasion - Nursing Vital Signs Nursing Vital Signs: Initial Vital Signs Temperature 97.3 F 04/21/20 17:42 Pulse Rate 74 04/21/20 17:42 Respiratory Rate 22 04/21/20 17:42 Blood Pressure 111/74 04/21/20 17:42 O2 Sat by Pulse Oximetry 98 04/21/20 17:42 Pain Scale Pain Intensity 5 - Physical Exam General Appearance: no apparent distress, alert, anxiety Eye Exam: PERRL/EOMI, eyes nml inspection Ears, Nose, Throat Exam: normal ENT inspection, TMs normal, pharynx normal Neck Exam: normal inspection, non-tender, supple, full range of motion Respiratory Exam: normal breath sounds, lungs clear, No chest tenderness Cardiovascular Exam: regular rate/rhythm, normal heart sounds Gastrointestinal/Abdomen Exam: soft, normal bowel sounds, No tenderness Back Exam: normal inspection, No CVA tenderness Extremity Exam: normal inspection, normal range of motion Neurologic Exam: alert, oriented x 3, cooperative, visual training aide II-XII nml as tested, nml cerebellar function, sensation nml, No motor deficits Skin Exam: normal color SpO2 Interpretation: normal SpO2: 98 - Course Nursing assessment & vital signs reviewed: Yes EKG Interpreted by Me: RATE (74), NORMAL AXIS, NORMAL INTERVALS, NORMAL QRS, Other (EKG #2 time 8:55 PM. Rate 92, axis normal, intervals normal. ST depression in 2 3 aVF, V4, V5, V6 with T wave inversions) Ordered Tests: Active Orders 24 hr Category Date Time Status Resolution Rep STAT Care 04/21/20 17:50 Active EKG-ER Only STAT Care 04/21/20 17:49 Active IV Insertion STAT Care 04/21/20 17:49 Active Oxygen-ED Only Nasal Cannula 2 lpm Care 04/21/20 17:49 Active CHEST 1 VIEW (PORTABLE) Stat Exams 04/21/20 17:50 Taken CHEST WITH CONTRAST [CT] Stat Exams 04/21/20 17:51 Taken HEAD WITHOUT CONTRAST [CT] Stat Exams 04/21/20 17:51 Taken CBC W DIFF Stat Lab 04/21/20 17:00 Completed CMP Stat Lab 04/21/20 17:00 Completed D-DIMER QUANTITATIVE Stat Lab 04/21/20 17:00 Completed Lactic Acid Stat Lab 04/21/20 17:52 Completed NT PRO BNP Stat Lab 04/21/20 17:00 Completed PROTIME WITH INR Stat Lab 04/21/20 17:00 Completed PTT Stat Lab 04/21/20 17:00 Completed TROPONIN Q3H Lab 04/21/20 17:00 Completed TROPONIN Q3H Lab 04/21/20 21:00 Ordered TROPONIN Q3H Lab 04/22/20 00:00 Ordered TROPONIN Q3H Lab 04/22/20 03:00 Ordered TROPONIN Q3H Lab 04/22/20 06:00 Ordered Medication Summary Generic Name Dose Route Start Last Admin Trade Name Freq PRN Reason Stop Dose Admin Sodium Chloride 1,000 mls @ 100 mls/hr 04/21/20 18:00 04/21/20 18:05 Sodium Chloride 0.9% 1000 Ml IV 05/21/20 17:59 100 mls/hr .Q10H ZAID Administration Sodium Chloride 1,000 mls @ 100 mls/hr 04/21/20 21:45 Sodium Chloride 0.9% 1000 Ml IV 05/21/20 21:44 .Q10H ZAID Heparin Sodium/Dextrose 250 mls @ 10 mls/hr 04/21/20 22:00 Heparin 25,000 Units/D5w 250ml Premix IV 05/21/20 21:59 .Q24H ZAID Discontinued Medications Generic Name Dose Route Start Last Admin Trade Name Freq PRN Reason Stop Dose Admin Heparin Sodium (Beef Lung) 5,000 unit 04/21/20 21:34 Heparin 5000 Units/0.5 Ml (High Risk Med) IV 04/21/20 21:35 STAT ONE Levetiracetam 1,000 mg/ 110 mls @ 220 mls/hr 04/21/20 18:35 04/21/20 18:41 Dextrose IV 04/21/20 19:04 220 mls/hr STAT ONE Administration Dextrose Confirm 04/21/20 18:38 D5w 100ml Mini Bag 100 Ml Administered 04/21/20 18:39 Dose 100 mls @ ud IV .STK-MED ONE Levetiracetam Confirm 04/21/20 18:37 Keppra 500 Mg/5 Ml Administered 04/21/20 18:38 Dose 500 mg .ROUTE .STK-MED ONE Morphine Sulfate 4 mg 04/21/20 17:49 04/21/20 18:04 Morphine Sulfate 4 Mg Inj IV 04/21/20 17:50 4 mg STAT ONE Administration Morphine Sulfate Confirm 04/21/20 18:03 Morphine Sulfate 4 Mg Inj Administered 04/21/20 18:04 Dose 4 mg .ROUTE .STK-MED ONE Nitroglycerin 1 gm 04/21/20 17:49 04/21/20 18:05 Nitro-Bid 2% Ud Packets TOP 04/21/20 17:50 1 gm STAT ONE Administration Nitroglycerin Confirm 04/21/20 18:02 Nitro-Bid 2% Ud Packets Administered 04/21/20 18:03 Dose 1 gm .ROUTE .STK-MED ONE Ondansetron HCl 4 mg 04/21/20 17:49 04/21/20 18:04 Zofran 4 Mg/2 Ml Vial IV 04/21/20 17:50 4 mg STAT ONE Administration Ondansetron HCl Confirm 04/21/20 18:02 Zofran 4 Mg/2 Ml Vial Administered 04/21/20 18:03 Dose 4 mg .ROUTE .[facility] ONE Lab/Rad Data: Laboratory Result Diagrams 04/21/20 17:00 04/21/20 17:00 Laboratory Results 04/21/20 04/21/20 04/21/20 Range/Units 18:10 17:52 17:00 WBC (4.0-10.5) K/mm3 RBC (4.1-5.4) M/mm3 Hgb (12.0-16.0) gm/dl Hct (35-47) % MCV (78-100) fl MCH (26-32) pg MCHC (32-36) g/dl RDW (11.5-14.0) % Plt Count (150-450) K/mm3 MPV (7.5-11.0) fl Gran % (36.0-66.0) % Eos # (Auto) (0-0.5) Absolute Lymphs (auto) (1.0-4.6) Absolute Monos (auto) (0.0-1.3) Lymphocytes % (24.0-44.0) % Monocytes % (0.0-12.0) % Eosinophils % (0.00-5.0) % Basophils % (0.0-0.4) % Absolute Granulocytes (1.4-6.9) Basophils # (0-0.4) PT 12.6 H (9.95-12.35) SECONDS INR 1.11 (0.8-3.0) APTT 26.8 (25.3-37.0) SECONDS D-Dimer 2154 H* (215-500) ng/mL Sodium (137-145) mmol/L Potassium (3.5-5.1) mmol/L Chloride (98-107) mmol/L Carbon Dioxide (22-30) mmol/L Anion Gap (5-15) MEQ/L BUN (7-17) mg/dL Creatinine (0.52-1.04) mg/dL Estimated GFR ML/MIN Glucose (74-106) mg/dL Lactic Acid 7.6 H (0.4-2.0) Calcium (8.4-10.2) mg/dL Total Bilirubin (0.2-1.3) mg/dL AST (14-36) U/L ALT (0-35) U/L Alkaline Phosphatase (38-126) U/L Troponin I < 0.012 (0.000-0.034) ng/mL NT-Pro-B Natriuret Pep (0-900) pg/mL Serum Total Protein (6.3-8.2) g/dL Albumin (3.5-5.0) g/dL 04/21/20 04/21/20 Range/Units 17:00 17:00 WBC 8.3 (4.0-10.5) K/mm3 RBC 3.34 L (4.1-5.4) M/mm3 Hgb 10.6 L (12.0-16.0) gm/dl Hct 32.3 L (35-47) % MCV 96.7 (78-100) fl MCH 31.7 (26-32) pg MCHC 32.8 (32-36) g/dl RDW 13.6 (11.5-14.0) % Plt Count 330 (150-450) K/mm3 MPV 10.5 (7.5-11.0) fl Gran % 55.0 (36.0-66.0) % Eos # (Auto) 0.23 (0-0.5) Absolute Lymphs (auto) 2.84 (1.0-4.6) Absolute Monos (auto) 0.66 (0.0-1.3) Lymphocytes % 34.1 (24.0-44.0) % Monocytes % 7.9 (0.0-12.0) % Eosinophils % 2.8 (0.00-5.0) % Basophils % 0.2 (0.0-0.4) % Absolute Granulocytes 4.58 (1.4-6.9) Basophils # 0.02 (0-0.4) PT (9.95-12.35) SECONDS INR (0.8-3.0) APTT (25.3-37.0) SECONDS D-Dimer (215-500) ng/mL Sodium 137 (137-145) mmol/L Potassium 3.4 L (3.5-5.1) mmol/L Chloride 103 (98-107) mmol/L Carbon Dioxide 18 L (22-30) mmol/L Anion Gap 19.7 H (5-15) MEQ/L BUN 8 (7-17) mg/dL Creatinine 1.01 (0.52-1.04) mg/dL Estimated GFR > 60.0 ML/MIN Glucose 130 H (74-106) mg/dL Lactic Acid (0.4-2.0) Calcium 9.1 (8.4-10.2) mg/dL Total Bilirubin 0.50 (0.2-1.3) mg/dL AST 25 (14-36) U/L ALT 13 (0-35) U/L Alkaline Phosphatase 105 (38-126) U/L Troponin I (0.000-0.034) ng/mL NT-Pro-B Natriuret Pep 262 (0-900) pg/mL Serum Total Protein 7.7 (6.3-8.2) g/dL Albumin 4.2 (3.5-5.0) g/dL - Progress Progress: improved, re-examined Air Movement: good Progress Note: 04/21/20 21:37 Years old is evaluated for sudden onset chest pain which started to improve after 3 nitros. She also had a seizure on the way to the ER but negative neuro exam throughout stay in the ER. Initial EKG showed sinus rhythm with no acute ST elevations and negative initial troponins. Her pain is better after morphine and Nitropaste. Chest x-ray negative for any acute cardiopulmonary findings. She is also given Keppra loading dose and CT head is obtained which is negative. I have obtained CTA chest which is negative for dissection/PE or any other acute findings. Repeat EKG showed ST depression in inferolateral leads but patient still having minimal discomfort but more pain in the back which according to patient is chronic because of scoliosis. Repeat troponin is pending. I believe patient needs cardiac cath. I have discussed with Dr. Fox who agrees with transfer to [facility] with cardiology services. I have discussed with Dr. Pena, agreed with starting heparin and patient is accepted for transfer. Blood Culture(s) Obtained: No Antibiotics given: No Discussed with : David, Other (Jean) Will see patient in: ED - Departure Departure Disposition: Transfer Clinical Impression: NSTEMI (non-ST elevated myocardial infarction), New onset seizure Condition: Stable Critical Care Time: Yes Critical Care Time(excluding separately billable procedures): Critical 75-104 mins Referrals: LEANA RETANA MD [Primary Care Provider] -
[2020-04-21] MEDS ORDERED: Heparin 5000 UNITS/0.5 ML (HIGH RISK MED) IV ONE (21:34)
--- NOTE | 2020-04-21 21:36 | XRAY ---
Indication: Syncope. Multiple contiguous axial images obtained through the head without contrast. Impression: September 24, 2016. Again normal appearing brain parenchyma, ventricles, and bony calvarium. There is now complete opacification of the left maxillary sinus. Remaining visualized paranasal sinuses and mastoid air cells are clear. Impression: New left maxillary sinus opacification. Remaining CT head without contrast exam is negative.
[2020-04-21 21:39] VITALS: PULSE 72
[2020-04-21 21:40] VITALS: O2SAT 98
--- NOTE | 2020-04-21 21:40 | XRAY ---
Indication: Chest pain. Elevated d-dimer. Multiple contiguous images obtained through the chest using 80 cc Isovue 370 contrast and PE protocol. Comparison: April 10, 2020. There is good opacification of the pulmonary arteries to include the lobar and segmental branches. Again no filling defect or pulmonary embolus. Heart is not enlarged. Aorta remains mildly arteriosclerotic. No pathologic mediastinal/hilar lymphadenopathy. Lungs again demonstrates bilateral pulmonary emphysema and minimal bilateral dependent atelectasis. Also stable calcified/noncalcified pulmonary nodules favored to be granulomatous. No new pulmonary mass, infiltrate, or effusion. Bony thorax intact again with minimal degenerative changes throughout the spine and minimal T12 nature wedging deformity. Limited upper abdomen including adrenal glands unremarkable. Impression: 1. Continued negative for pulmonary embolus. No new or acute cardiopulmonary abnormalities. 2. Stable pulmonary emphysema and calcified/noncalcified granulomatous micronodules.
--- NOTE | 2020-04-21 21:42 | XRAY ---
Indication: Chest pain. Comparison: April 12, 2020. Portable chest again demonstrates normal heart and lungs with left upper lobe calcified granuloma. No new/acute findings.
[2020-04-21] MEDS ORDERED: Heparin 5000 UNITS/0.5 ML (HIGH RISK MED) ONE (21:44)
[2020-04-21] MEDS ORDERED: Heparin 25,000 units/D5W 250ML PREMIX 250 ML IV SCH ×2 (21:47→22:00)
[2020-04-21] MEDS ORDERED: Heparin 25,000 units/D5W 250ML PREMIX 25,000 UNITS/250 ML BAG IV ONE (21:54)
[2020-04-21] MEDS ORDERED: Heparin 25,000 units/D5W 250ML PREMIX 25,000 UNITS/250 ML BAG IV SCH (21:55)
[2020-04-21] MEDS ORDERED: SUBLIMAZE 100 MCG/2 ML ONE (22:07)
[2020-04-21] MEDS ORDERED: SUBLIMAZE 100 MCG/2 ML IV ONE (22:15)
[2020-04-21 22:25] VITALS: BP 128/81
== END 2020-04-21 22:23 | disposition short-term general hospital (02) ==
LOC: ED 17:42
DX: I21.4 Non-ST elevation (NSTEMI) myocardial infarction (principal); R56.9 Unspecified convulsions; I50.9 Heart failure, unspecified; Z72.0 Tobacco use; R07.89 Other chest pain; Z79.899 Other long term (current) drug therapy; I10 Essential (primary) hypertension
CPT/HCPCS: 36000; 36415; 70450; 71045; 71260; 80053; 83605; 83880; 84484; 85025; 85379; 85610; 85730; 93005; 93041; 96365; 96367; 96374; 96375; 99285; 99291; 99292; J1644; J1953; J2270; J2405; J3010; A9270-GY

== ENCOUNTER 2020-05-02 22:36 | Emergency (ER) | payer BC, MEDICAID ==
--- NOTE | 2020-05-02 22:46 | ERPHSYRPT ---
- History of Present Illness Historian: patient Exam Limitations: other (Poor historian) Physician History: 55 yo wf w mid-sternal chest pain wo radiation x7hr. Pain does not radiate and is described as a dull ache. She is dyspnic w mild diaphoresis but denies N/V. Pt has a h/o CAD w a R radial cath last week and is scheduled for CABG on 05/08/20. She has a h/o HTN/hyperlipidemia/<1ppd tobacco abuse/FH of CAD. Timing/Duration: other (7hr) Quality: aching Location: substernal Chest Pain Radiation: no radiation Severity of Pain-Max: severe Severity of Pain-Current: severe Modifying Factors: Improves With: nothing Associated Symptoms: shortness of breath, diaphoresis, No nausea, No vomiting Prior Chest Pain/Cardiac Workup: cardiac cath, recently seen/treated Nitro Today/Relief: no nitro taken today Aspirin Treatment Today: no aspirin today Allergies/Adverse Reactions: Penicillins Allergy (Severe, Verified 05/02/20 22:42) Swelling levofloxacin [From Levaquin] Allergy (Verified 05/02/20 22:42) Home Medications: Aspirin [Aspirin EC] 81 mg PO DAILY 04/21/20 [History] Atorvastatin Calcium [Lipitor] 80 mg PO DAILY 04/21/20 [History] Hydrocodone/Acetaminophen [Hydrocodone-Acetamin 7.5-325] 1 tab PO DAILY 04/21/20 [History] Lisinopril 10 mg [Zestril 10 MG] 10 mg PO DAILY 04/21/20 [History] Metoprolol Tartrate 25 mg PO DAILY 04/21/20 [History] Nitroglycerin 0.4 mg SL DAILY PRN 04/21/20 [History] Hx Tetanus, Diphtheria Vaccination/Date Given: No Hx Influenza Vaccination/Date Given: No Hx Pneumococcal Vaccination/Date Given: No - Review of Systems Constitutional: No Symptoms Eyes: No Symptoms Ears, Nose, & Throat: No Symptoms Respiratory: Dyspnea Cardiac: Chest Pain Abdominal/Gastrointestinal: No Symptoms Genitourinary Symptoms: No Symptoms Musculoskeletal: No Symptoms Skin: No Symptoms Neurological: No Symptoms Psychological: No Symptoms Endocrine: No Symptoms Hematologic/Lymphatic: No Symptoms Immunological/Allergic: No Symptoms - Past Medical History Pertinent Past Medical History: Yes Neurological History: Migraines, Other Cardiac History: Hypertension Respiratory History: No Pertinent History Endocrine Medical History: No Pertinent History Musculoskeletal History: Osteoarthritis, Osteoporosis GI Medical History: GERD - Past Surgical History Past Surgical History: Yes Musculoskeletal: Orthopedic Surgery Female Surgical History: Other Other Surgical History: left hand. uterine cancer ablation - Social History Smoking Status: Current every day smoker How long have you smoked: years Exposure to second hand smoke: Yes Drug Use: none Patient Lives Alone: Yes - Nursing Vital Signs Nursing Vital Signs: Initial Vital Signs Temperature 97.5 F 05/02/20 22:39 Pulse Rate 80 05/02/20 22:39 Respiratory Rate 21 05/02/20 22:39 Blood Pressure 151/96 05/02/20 22:39 O2 Sat by Pulse Oximetry 80 L 05/02/20 22:39 Pain Scale Pain Intensity 0 - Physical Exam General Appearance: other (WF in severe distress w sats in 80's) Eye Exam: PERRL/EOMI, eyes nml inspection Ears, Nose, Throat Exam: normal ENT inspection, pharynx normal, moist mucous membranes Neck Exam: normal inspection, supple Respiratory Exam: respiratory distress, diminished breath sounds Cardiovascular Exam: regular rate/rhythm Gastrointestinal/Abdomen Exam: soft, normal bowel sounds, No tenderness Back Exam: normal inspection, normal range of motion SpO2 Interpretation: hypoxic SpO2: 80 O2 Delivery: Nasal Cannula - Course EKG Interpreted by Me: RATE (NSR/R80/global ST segment depression/Normal Qt-Qtc) - Radiology Exams Chest X-ray Interpretation: Teleradiologist Report (R pleural effusion/Disagree-B pleural effusions w interstitual pattern) Ordered Tests: Active Orders 24 hr Category Date Time Status Senior Bi Developer STAT Care 05/02/20 22:51 Active EKG-ER Only STAT Care 05/02/20 22:51 Active IV Insertion STAT Care 05/02/20 22:50 Active IV Insertion-2nd Peripheral STAT Care 05/02/20 22:51 Active Oxygen-ED Only NON-REBREATHER 100% Care 05/02/20 22:51 Active Pulse Oximetry (ED) STAT Care 05/02/20 22:51 Active CHEST 1 VIEW (PORTABLE) Stat Exams 05/02/20 23:04 Taken CBC W DIFF Stat Lab 05/02/20 22:50 Completed CMP Stat Lab 05/02/20 22:50 Completed NT PRO BNP Stat Lab 05/02/20 22:50 Completed PROTIME WITH INR Stat Lab 05/02/20 22:50 Completed PTT Stat Lab 05/02/20 22:50 Completed TROPONIN Q3H Lab 05/02/20 22:50 Completed TROPONIN Q3H Lab 05/03/20 01:45 Ordered TROPONIN Q3H Lab 05/03/20 04:45 Ordered TROPONIN Q3H Lab 05/03/20 07:45 Ordered TROPONIN Q3H Lab 05/03/20 10:45 Ordered Respiratory Therapy Assessment DAILY RT 05/02/20 23:04 Active Medication Summary Discontinued Medications Generic Name Dose Route Start Last Admin Trade Name Freq PRN Reason Stop Dose Admin Albuterol/Ipratropium 3 ml 05/02/20 22:46 05/02/20 22:50 Duoneb 0.5-3 Mg/3 Ml Neb IH 05/02/20 22:47 3 ml STAT ONE Administration Albuterol/Ipratropium Confirm 05/02/20 22:47 Duoneb 0.5-3 Mg/3 Ml Neb Administered 05/02/20 22:48 Dose 3 ml IH .STK-MED ONE Aspirin 324 mg 05/02/20 22:43 05/02/20 22:55 Baby Aspirin 81 Mg Chew PO 05/02/20 22:44 324 mg STAT ONE Administration Aspirin Confirm 05/02/20 22:54 Baby Aspirin 81 Mg Chew Administered 05/02/20 22:55 Dose 324 mg .ROUTE .STK-MED ONE Furosemide 40 mg 05/02/20 22:44 05/02/20 22:55 Lasix 40 Mg/4 Ml IV 05/02/20 22:45 40 mg STAT ONE Administration Furosemide Confirm 05/02/20 22:50 Lasix 40 Mg/4 Ml Administered 05/02/20 22:51 Dose 40 mg .ROUTE .STK-MED ONE Lab/Rad Data: Laboratory Result Diagrams 05/02/20 22:50 05/02/20 22:50 Laboratory Results 05/02/20 05/02/20 05/02/20 Range/Units 22:50 22:50 22:50 WBC (4.0-10.5) K/mm3 RBC (4.1-5.4) M/mm3 Hgb (12.0-16.0) gm/dl Hct (35-47) % MCV (78-100) fl MCH (26-32) pg MCHC (32-36) g/dl RDW (11.5-14.0) % Plt Count (150-450) K/mm3 MPV (7.5-11.0) fl Gran % (36.0-66.0) % Eos # (Auto) (0-0.5) Absolute Lymphs (auto) (1.0-4.6) Absolute Monos (auto) (0.0-1.3) Lymphocytes % (24.0-44.0) % Monocytes % (0.0-12.0) % Eosinophils % (0.00-5.0) % Basophils % (0.0-0.4) % Absolute Granulocytes (1.4-6.9) Basophils # (0-0.4) PT 12.4 H (9.95-12.35) SECONDS INR 1.10 (0.8-3.0) APTT 33.4 (25.3-37.0) SECONDS Sodium 139 (137-145) mmol/L Potassium 3.0 L (3.5-5.1) mmol/L Chloride 103 (98-107) mmol/L Carbon Dioxide 29 (22-30) mmol/L Anion Gap 10.3 (5-15) MEQ/L BUN 9 (7-17) mg/dL Creatinine 0.86 (0.52-1.04) mg/dL Estimated GFR > 60.0 ML/MIN Glucose 104 (74-106) mg/dL Calcium 9.5 (8.4-10.2) mg/dL Total Bilirubin 0.60 (0.2-1.3) mg/dL AST 21 (14-36) U/L ALT 13 (0-35) U/L Alkaline Phosphatase 136 H (38-126) U/L Troponin I 0.762 H* (0.000-0.034) ng/mL NT-Pro-B Natriuret Pep 2360 H (0-900) pg/mL Serum Total Protein 7.8 (6.3-8.2) g/dL Albumin 4.1 (3.5-5.0) g/dL 05/02/20 Range/Units 22:50 WBC 8.1 (4.0-10.5) K/mm3 RBC 3.63 L (4.1-5.4) M/mm3 Hgb 11.6 L (12.0-16.0) gm/dl Hct 34.6 L (35-47) % MCV 95.3 (78-100) fl MCH 32.0 (26-32) pg MCHC 33.5 (32-36) g/dl RDW 14.5 H (11.5-14.0) % Plt Count 373 (150-450) K/mm3 MPV 10.6 (7.5-11.0) fl Gran % 70.4 H (36.0-66.0) % Eos # (Auto) 0.19 (0-0.5) Absolute Lymphs (auto) 1.68 (1.0-4.6) Absolute Monos (auto) 0.52 (0.0-1.3) Lymphocytes % 20.7 L (24.0-44.0) % Monocytes % 6.4 (0.0-12.0) % Eosinophils % 2.3 (0.00-5.0) % Basophils % 0.2 (0.0-0.4) % Absolute Granulocytes 5.69 (1.4-6.9) Basophils # 0.02 (0-0.4) PT (9.95-12.35) SECONDS INR (0.8-3.0) APTT (25.3-37.0) SECONDS Sodium (137-145) mmol/L Potassium (3.5-5.1) mmol/L Chloride (98-107) mmol/L Carbon Dioxide (22-30) mmol/L Anion Gap (5-15) MEQ/L BUN (7-17) mg/dL Creatinine (0.52-1.04) mg/dL Estimated GFR ML/MIN Glucose (74-106) mg/dL Calcium (8.4-10.2) mg/dL Total Bilirubin (0.2-1.3) mg/dL AST (14-36) U/L ALT (0-35) U/L Alkaline Phosphatase (38-126) U/L Troponin I (0.000-0.034) ng/mL NT-Pro-B Natriuret Pep (0-900) pg/mL Serum Total Protein (6.3-8.2) g/dL Albumin (3.5-5.0) g/dL - Progress Progress: improved Air Movement: fair Progress Note: 05/02/20 23:[address] Davey([facility]) at 23:50 05/03/20 00:05 Pt placed on 4L O2 NC due to Sats in 80's upon arrival. Pt subsequently placed on 100% NRB FM w improvement in Sats to low to mid 90's. Duoneb was given, along w 40mg IV lasix. Oxygenation improved after diuresis of 1300ml of urine. NRB FM rermoved and 6L O2 NC placed on pt. Pt resting comfortably w sats of 96% before transfer, 324 chewable ASA given upon arrival. Chest pain resolved w treatment. 05/03/20 00:19 Care assumed by ambulance service in stable condition. - Departure Departure Disposition: Transfer Clinical Impression: NSTEMI (non-ST elevated myocardial infarction), CHF (congestive heart failure) Condition: Stable Critical Care Time: Yes Critical Care Time(excluding separately billable procedures): Critical 30-74 mins Referrals: LEANA RETANA MD [Primary Care Provider] - Instructions: Heart Failure
[2020-05-02] MEDS ORDERED: DUONEB 0.5-3 MG/3 ml Neb IH ONE (22:47)
[2020-05-02] MEDS ORDERED: Lasix 40 MG/4 ML ONE (22:50)
[2020-05-02] MEDS: DUONEB 0.5-3 MG/3 ml Neb IH ONE (22:50)
[2020-05-02] MEDS ORDERED: BABY ASPIRIN 81 MG CHEW ONE (22:54)
[2020-05-02] MEDS: BABY ASPIRIN 81 MG CHEW PO ONE (22:55)
[2020-05-02] MEDS: Lasix 40 MG/4 ML IV ONE (22:55)
[2020-05-02 23:01] LABS: Absolute Neutrophil Ct (ANC) 5.69 (1.4-6.9); BASOPHIL % 0.2 % (0.0-0.4); Basophil (Absolute #) 0.02 (0-0.4); Eosinophil % 2.3 % (0.00-5.0); Eosinophil (Absolute #) 0.19 (0-0.5); Hematocrit 34.6 % (35-47); Hemoglobin 11.6 gm/dl (12.0-16.0); Lymphocyte (Absolute #) 1.68 (1.0-4.6); Lymphocytes % 20.7 % (24.0-44.0); Mean Cell Volume 95.3 fl (78-100); Mean Corpuscular Hgb Concent. 33.5 g/dl (32-36); Mean Platelet Volume 10.6 fl (7.5-11.0); Monocyte (Absolute #) 0.52 (0.0-1.3); Monocytes % 6.4 % (0.0-12.0); Neutrophil % 70.4 % (36.0-66.0); Platelet Count 373 K/mm3 (150-450); Red Blood Count 3.63 M/mm3 (4.1-5.4); Red Cell Distribution Width 14.5 % (11.5-14.0); White Blood Count 8.1 K/mm3 (4.0-10.5)
[2020-05-02 23:16] LABS: INR 1.1 (0.8-3.0); PROTIME 12.4 SECONDS (9.95-12.35)
[2020-05-02 23:19] LABS: PTT 33.4 SECONDS (25.3-37.0)
[2020-05-02 23:29] LABS: ALBUMIN 4.1 g/dL (3.5-5.0); ALKALINE PHOSPHATASE 136 U/L (38-126); ANION GAP 10.3 MEQ/L (5-15); BLOOD UREA NITROGEN 9 mg/dL (7-17); CHLORIDE 103 mmol/L (98-107); Calcium 9.5 mg/dL (8.4-10.2); Carbon Dioxide 29 mmol/L (22-30); Creatinine 1 0.86 mg/dL (0.52-1.04); Glucose 104 mg/dL (74-106); NT PRO BNP 2360 pg/mL (0-900); SGOT/AST 21 U/L (14-36); SGPT/ALT 13 U/L (0-35); SODIUM 139 mmol/L (137-145); Total Protein 7.8 g/dL (6.3-8.2)
[2020-05-02 23:51] VITALS: PULSE 82
[2020-05-03 00:27] VITALS: BP 133/91; O2SAT 96
--- NOTE | 2020-05-03 08:45 | XRAY ---
Indication: Chest pain. Comparison: April 21, 2020. Portable chest demonstrates new diffuse pulmonary edema and small bibasilar effusions without cardiomegaly. Stable left upper lobe calcified granuloma and mild double curvature scoliosis. Comment: Preliminary interpretation was made by [facility] who does not report pulmonary edema and left effusion.
== END 2020-05-03 00:20 | disposition short-term general hospital (02) ==
LOC: ED 22:36
DX: I21.4 Non-ST elevation (NSTEMI) myocardial infarction (principal); I50.9 Heart failure, unspecified; I10 Essential (primary) hypertension; E78.5 Hyperlipidemia, unspecified; I25.810 Atherosclerosis of coronary artery bypass graft(s) without angina pectoris; Z79.899 Other long term (current) drug therapy
CPT/HCPCS: 36000; 36415; 71045; 80053; 83880; 84484; 85025; 85610; 85730; 93005; 93041; 94640; 94760; 96374; 99284; 99291; J1940; A9270-GY

== ENCOUNTER 2020-09-12 20:26 | Emergency (ER) | payer OTHER ==
[2020-09-12] MEDS ORDERED: DECADRON 10MG INJ. PO ONE (21:03)
[2020-09-12] MEDS ORDERED: TORAdol 30 mg Injection IM ONE (21:04)
[2020-09-12] MEDS ORDERED: DECADRON 10MG INJ. ONE (21:06)
[2020-09-12] MEDS ORDERED: TORAdol 30 mg Injection ONE (21:06)
--- NOTE | 2020-09-12 21:12 | ERPHSYRPT ---
- History of Present Illness Time Seen by Provider: 09/12/20 20:40 Source: patient Patient Subjective Stated Complaint: pt c/o low back pain Triage Nursing Assessment: pt c/o low back pain. Pt states, "I haven't slept since Friday and haven't ate today". Pt has been using heat pad for back which helps. Pt had CABG in April and can't get comfortable, pt's a side sleeper and can't sleep. Pt has hx of scoliosis. Physician History: Patient is a 55-year-old female presents to our ED for evaluation of acute on chronic low back pain. Patient has a history of scoliosis and fracture contributing to her chronic low back pain. Patient states her back pain has been particularly worse over the past 3 days. This may be due to increased exercise during her cardiac rehab classes. Patient having difficulty sleeping. The quality and characteristics of her pain today is typical of her usual back pain. Pain is well localized. However certain movements cause it to radiate down her leg. No hematuria or dysuria. Patient has no urinary complaints. Patient states warm pack improves her symptoms. Prolonged postures exacerbate her pain. No lower extremity numbness tingling or weakness. No abdominal pain. No chest pain or shortness of breath. No fever. No change in bowel bladder function. No recent back procedures. No saddle anesthesia. Upon arrival to our ED it was observed her blood pressure was elevated. This was attributed to patient's back pain. We decided to treat patient's pain and observe her blood pressure. Patient voices no other complaints or concerns at this time. Timing/Duration: day(s) (3 days) Severity: moderate Modifying Factors: Improves With: immobilization, movement Associated Symptoms: No nausea, No vomiting, No abdominal pain, No shortness of breath, No diaphoresis, No cough, No chills, No chest pain, No fever, No headaches, No loss of appetite, No syncope, No seizure Allergies/Adverse Reactions: Penicillins Allergy (Severe, Verified 09/12/20 20:46) Swelling levofloxacin [From Levaquin] Allergy (Verified 09/12/20 20:46) Home Medications: Aspirin [Aspirin EC] 81 mg PO DAILY 04/21/20 [History] Atorvastatin Calcium [Lipitor] 80 mg PO DAILY 04/21/20 [History] Hydrocodone/Acetaminophen [Hydrocodone-Acetamin 7.5-325] 10 - 325 tab PO TID PRN PRN 04/21/20 [History] Lisinopril 10 mg [Zestril 10 MG] 5 mg PO DAILY 04/21/20 [History] Metoprolol Tartrate 25 mg PO DAILY 04/21/20 [History] Nitroglycerin 0.4 mg SL DAILY PRN 04/21/20 [History] Clopidogrel Bisulfate [Plavix] 75 mg PO DAILY 09/12/20 [History] Cyanocobalamin (Vitamin B-12) [Vitamin B-12] 1 tab PO DAILY 09/12/20 [History] Ezetimibe 10 mg [Zetia 10 MG] 10 mg PO DAILY 09/12/20 [History] Hx Tetanus, Diphtheria Vaccination/Date Given: No Hx Influenza Vaccination/Date Given: No Hx Pneumococcal Vaccination/Date Given: No Immunizations Up to Date: No Travel Risk - International Travel Have you traveled outside of the country in past 3 weeks: No - Coronavirus Screening Are you exhibiting any of the following symptoms?: No Symptoms: Shortness of Breath, Headaches/Body Aches/Fatigue Close contact with a COVID-19 positive Pt in past 14-21 Days: Yes - Review of Systems Constitutional: No Symptoms, No Fever, No Chills Eyes: No Symptoms Ears, Nose, & Throat: No Symptoms Respiratory: No Symptoms, No Cough, No Dyspnea Cardiac: No Symptoms, No Chest Pain, No Edema, No Syncope Abdominal/Gastrointestinal: No Symptoms, No Abdominal Pain, No Nausea, No Vomiting, No Diarrhea Genitourinary Symptoms: No Symptoms, No Dysuria Musculoskeletal: No Symptoms, No Back Pain, No Neck Pain Skin: No Symptoms, No Rash Neurological: No Symptoms, No Dizziness, No Focal Weakness, No Sensory Changes Psychological: No Symptoms Endocrine: No Symptoms Hematologic/Lymphatic: No Symptoms Immunological/Allergic: No Symptoms All Other Systems: Reviewed and Negative - Past Medical History Pertinent Past Medical History: Yes Neurological History: Migraines, Seizures, Other ENT History: No Pertinent History Cardiac History: Coronary Artery Disease, High Cholesterol, Hypertension, Myocardial Infarction ([place]) Respiratory History: COPD Endocrine Medical History: No Pertinent History Musculoskeletal History: Osteoarthritis, Osteoporosis GI Medical History: GERD History: No Pertinent History Psycho-Social History: Anxiety, Depression Female Reproductive Disorders: Uterine Cancer Other Medical History: apparent seizure. scoliosis - Past Surgical History Past Surgical History: Yes Neuro Surgical History: No Pertinent History Cardiac: CABG, Cardiac Catheterization Respiratory: No Pertinent History Gastrointestinal: No Pertinent History Genitourinary: No Pertinent History Musculoskeletal: Orthopedic Surgery Female Surgical History: Other Other Surgical History: left hand. uterine cancer ablation - Social History Smoking Status: Current every day smoker How long have you smoked: 35 years Exposure to second hand smoke: No Drug Use: none Patient Lives Alone: No - Female History Hx Now: No - Nursing Vital Signs Nursing Vital Signs: Initial Vital Signs Temperature 98.0 F 09/12/20 20:31 Pulse Rate 90 09/12/20 20:31 Respiratory Rate 18 09/12/20 20:31 Blood Pressure 205/148 09/12/20 20:31 O2 Sat by Pulse Oximetry 98 09/12/20 20:31 Pain Scale Pain Intensity [] 7 Pain Intensity 5 - Physical Exam General Appearance: no apparent distress, alert Eye Exam: PERRL/EOMI, eyes nml inspection Ears, Nose, Throat Exam: normal ENT inspection, TMs normal, pharynx normal, moist mucous membranes Neck Exam: normal inspection, non-tender, supple, full range of motion Respiratory Exam: normal breath sounds, lungs clear, No respiratory distress Cardiovascular Exam: regular rate/rhythm, normal heart sounds, normal peripheral pulses Gastrointestinal/Abdomen Exam: soft, normal bowel sounds, No tenderness, No mass Back Exam: normal inspection, normal range of motion, other (Tenderness palpation along bilateral lumbar paraspinal musculature. Palpation reproduces her pain. Bilateral distal pulses palpable and equal. No pulsatile abdominal masses. No CVA tenderness.), No CVA tenderness, No vertebral tenderness Extremity Exam: normal inspection, normal range of motion, pelvis stable Neurologic Exam: alert, oriented x 3, cooperative, normal mood/affect, nml cerebellar function, nml station & gait, sensation nml, No motor deficits Skin Exam: normal color, warm, dry, No rash Lymphatic Exam: No adenopathy SpO2: 98 O2 Delivery: Room Air - Course Nursing assessment & vital signs reviewed: Yes - Radiology Exams L-Spine X-ray Interpretation: Interpreted by me (Scoliosis, osteopenia, DJD, aortic calcifications, no fractures or dislocations.) Ordered Tests: Active Orders 24 hr Category Date Time Status LUMBAR LIMITED (2 OR 3 VIEWS) Stat Exams 09/12/20 21:05 Taken Medication Summary Discontinued Medications Generic Name Dose Route Start Last Admin Trade Name Tawny PRN Reason Stop Dose Admin Dexamethasone Confirm 09/12/20 21:31 Decadron 4 Mg Administered 09/12/20 21:32 Dose 8 mg .ROUTE .STK-MED ONE Dexamethasone 6 mg 09/12/20 21:36 09/12/20 21:37 Decadron 4 Mg PO 09/12/20 21:37 6 mg STAT ONE Administration Dexamethasone Sodium Phosphate 6 mg 09/12/20 21:03 09/12/20 21:29 Decadron 10mg Inj. PO 09/12/20 21:04 Not Given STAT ONE Dexamethasone Sodium Phosphate Confirm 09/12/20 21:06 Decadron 10mg Inj. Administered 09/12/20 21:07 Dose 10 mg .ROUTE .STK-MED ONE Ketorolac Tromethamine 30 mg 09/12/20 21:04 09/12/20 21:25 Toradol 30 Mg Injection IM 09/12/20 21:05 30 mg STAT ONE Administration Ketorolac Tromethamine Confirm 09/12/20 21:06 Toradol 30 Mg Injection Administered 09/12/20 21:07 Dose 30 mg .ROUTE .STK-MED ONE - Progress Progress: improved Progress Note: 09/12/20 22:10 Patient reassessed. Pain improved. Blood pressure improved as well as expected. X-ray negative for acute pathology. There is some osteopenia some degenerative joint disease scoliosis aortic calcifications observed. Patient states she is well and is requesting discharge. Patient has an appointment scheduled for her cardiac rehab tomorrow morning. Patient states she will get her blood pressure rechecked tomorrow morning. Will discharge home at this time. Patient voices no other complaints concerns at this time. Counseled pt/family regarding: diagnosis - Departure Departure Disposition: Home Clinical Impression: Lumbosacral strain, Osteopenia, Lumbar and sacral arthritis, Back pain Condition: Stable Critical Care Time: No Referrals: LEANA RETANA MD [Primary Care Provider] - Additional Instructions: Discharge/Care Plan TOYIN PEDRO was seen on 09/12/20 in the Emergency Room. The patient was counseled regarding Diagnosis,Lab results, Imaging studies, need for follow up and when to return to the Emergency Room. Prescriptions given: Discharge Note I have spoken with the patient and/or caregivers. I have explained the patient's condition, diagnosis and treatment plan based on the information available to me at this time. I have answered the patient's and/or caregiver's questions and addressed any concerns. The patient and/or caregivers have as good understanding of the patient's diagnosis, condition and treatment plan as can be expected at this point. The vital signs have been stable. The patient's condition is stable and appropriate for discharge from the emergency department. The patient will pursue further outpatient evaluation with the primary care physician or other designated or consulting physician as outlined in the discharge instructions. The patient and/or caregivers are agreeable to this plan of care and follow-up instructions have been explained in detail. The patient and/or caregivers have received these instruction. The patient/and or caregivers are aware that any significant change in condition or worsening of symptoms should prompt an immediate return to this or the closest emergency department or call 911.
[2020-09-12] MEDS ORDERED: Decadron 4 MG ONE (21:31)
[2020-09-12] MEDS ORDERED: Decadron 4 MG PO ONE (21:36)
[2020-09-12 21:53] VITALS: O2SAT 98
[2020-09-12 22:07] VITALS: BP 181/119; PULSE 80
--- NOTE | 2020-09-13 09:57 | XRAY ---
Indication: Back pain. No known injury. Comparison: June 19, 2015. 3 view lumbar spine again demonstrates minimal dextroscoliosis centered at thoracolumbar junction and mild scattered aortoiliac calcifications. No new/acute bony, articular, or soft tissue abnormalities.
== END 2020-09-12 22:14 | disposition home or self-care (01) ==
LOC: ED 20:26
DX: M54.5 Low back pain (principal); M46.1 Sacroiliitis, not elsewhere classified; M85.80 Other specified disorders of bone density and structure, unspecified site; S39.012A Strain of muscle, fascia and tendon of lower back, initial encounter; Z79.899 Other long term (current) drug therapy
CPT/HCPCS: 72100; 96372; 99284; J1100; J1885; A9270-GY

== ENCOUNTER 2021-10-03 06:31 | Emergency (ER) | payer OTHER ==
[2021-10-03] MEDS ORDERED: BABY ASPIRIN 81 MG CHEW PO ONE (07:00)
--- NOTE | 2021-10-03 07:01 | ERPHSYRPT ---
- History of Present Illness Time Seen by Provider: 10/03/21 07:00 Historian: patient Exam Limitations: no limitations Physician History: This is a 56-year-old white female patient who in April 2020 underwent a three- vessel coronary artery bypass. Patient's inspector is Dr. Merchant. She has a history of hypertension, elevated cholesterol, coronary disease, COPD and migraine headaches. She also has a history of anxiety issues. Patient states her family just left on Friday and she is not sure of her symptoms of chest pressure that is mild and has a burning component is related to that more than an actual heart issue. Patient did take her cardiac and blood pressure medications this morning. She does take Plavix and aspirin daily. Patient additionally took nitroglycerin and [place] prior to arrival. Upon arrival into the emergency department her chest pain level is a 2 out of 10. It is substernal, mild pressure with mild burning component and is nonradiating. Patient states that she had some intestinal flulike symptoms a few days prior to the chest complaints that began just a couple days ago. Timing/Duration: day(s) (A few) Activities at Onset: none Quality: burning, dullness Location: substernal, central Chest Pain Radiation: no radiation Severity of Pain-Max: moderate Severity of Pain-Current: mild Modifying Factors: Improves With: nitroglycerin, aspirin Associated Symptoms: denies symptoms Prior Chest Pain/Cardiac Workup: cardiac cath, heart attack Nitro Today/Relief: 0.4 mg x 1 Aspirin Treatment Today: 81 mg x 1, provided at home Allergies/Adverse Reactions: Penicillins Allergy (Severe, Verified 10/03/21 06:39) Swelling levofloxacin [From Levaquin] Allergy (Verified 10/03/21 06:39) Home Medications: Aspirin [Aspirin EC] 81 mg PO DAILY 04/21/20 [History] Atorvastatin Calcium [Lipitor] 40 mg PO BID 04/21/20 [History] Hydrocodone/Acetaminophen [Hydrocodone-Acetamin 7.5-325] 10 - 325 tab PO Q6HPRN PRN 04/21/20 [History] Lisinopril 10 mg [Zestril 10 MG] 10 mg PO DAILY 04/21/20 [History] Metoprolol Tartrate 50 mg PO BID 04/21/20 [History] Nitroglycerin 0.4 mg SL DAILY PRN 04/21/20 [History] Clopidogrel Bisulfate [Plavix] 75 mg PO DAILY 09/12/20 [History] Cyanocobalamin (Vitamin B-12) [Vitamin B-12] 1 tab PO DAILY 09/12/20 [History] Ezetimibe 10 mg [Zetia 10 MG] 10 mg PO DAILY 09/12/20 [History] Bupropion HCl 150 mg Sr [Wellbutrin SR 150 MG] 1 tab PO BID 10/03/21 [History] Gabapentin 100 mg [Neurontin 100 MG] 100 mg PO BID 10/03/21 [History] Omeprazole 40 mg PO DAILY 10/03/21 [History] Potassium Chloride [Klor-Con M20] 20 meq PO DAILY 10/03/21 [History] Hx Tetanus, Diphtheria Vaccination/Date Given: No Hx Influenza Vaccination/Date Given: No Hx Pneumococcal Vaccination/Date Given: No Travel Risk - International Travel Have you traveled outside of the country in past 3 weeks: No - Coronavirus Screening Are you exhibiting any of the following symptoms?: No Close contact with a COVID-19 positive Pt in past 14-21 Days: No - Review of Systems Constitutional: No Symptoms Eyes: No Symptoms Ears, Nose, & Throat: No Symptoms Respiratory: No Symptoms Cardiac: Chest Pain Abdominal/Gastrointestinal: No Symptoms Genitourinary Symptoms: No Symptoms Musculoskeletal: No Symptoms Skin: No Symptoms Neurological: No Symptoms Psychological: No Symptoms Endocrine: No Symptoms Hematologic/Lymphatic: No Symptoms Immunological/Allergic: No Symptoms All Other Systems: Reviewed and Negative - Past Medical History Pertinent Past Medical History: Yes Neurological History: Migraines, Seizures, Other ENT History: No Pertinent History Cardiac History: Coronary Artery Disease, High Cholesterol, Hypertension, Myocardial Infarction ([place]) Respiratory History: COPD Endocrine Medical History: No Pertinent History Musculoskeletal History: Osteoarthritis, Osteoporosis GI Medical History: GERD History: No Pertinent History Psycho-Social History: Anxiety, Depression Female Reproductive Disorders: Uterine Cancer Other Medical History: apparent seizure. scoliosis - Past Surgical History Past Surgical History: Yes Neuro Surgical History: No Pertinent History Cardiac: CABG, Cardiac Catheterization Respiratory: No Pertinent History Gastrointestinal: No Pertinent History Genitourinary: No Pertinent History Musculoskeletal: Orthopedic Surgery Female Surgical History: Other Other Surgical History: left hand. uterine cancer ablation - Social History Smoking Status: Current every day smoker How long have you smoked: 35 years Exposure to second hand smoke: No Drug Use: none Patient Lives Alone: No - Nursing Vital Signs Nursing Vital Signs: Initial Vital Signs Temperature 98.3 F 10/03/21 06:31 Pulse Rate 62 10/03/21 06:31 Respiratory Rate 16 10/03/21 06:31 Blood Pressure 202/107 10/03/21 06:31 O2 Sat by Pulse Oximetry 99 10/03/21 06:31 Pain Scale Pain Intensity 2 - Physical Exam General Appearance: no apparent distress, alert, anxiety Eye Exam: PERRL/EOMI, eyes nml inspection Ears, Nose, Throat Exam: normal ENT inspection, moist mucous membranes Neck Exam: normal inspection, non-tender, supple, full range of motion Respiratory Exam: normal breath sounds, lungs clear, airway intact, No chest tenderness, No respiratory distress Cardiovascular Exam: regular rate/rhythm, normal heart sounds, normal peripheral pulses Gastrointestinal/Abdomen Exam: soft, normal bowel sounds, No tenderness Pelvic Exam: not done Rectal Exam: not done Back Exam: normal inspection, normal range of motion, No CVA tenderness, No vertebral tenderness Extremity Exam: normal inspection, normal range of motion, pelvis stable Neurologic Exam: alert, oriented x 3, cooperative, staff nurse icu resource team II-XII nml as tested, normal mood/affect, nml cerebellar function, nml station & gait, sensation nml Skin Exam: normal color, warm, dry Lymphatic Exam: No adenopathy SpO2 Interpretation: normal O2 Delivery: Room Air - Course Nursing assessment & vital signs reviewed: Yes EKG Interpreted by Me: RATE (61), Sinus Rhythm, NORMAL AXIS, NORMAL INTERVALS, NORMAL QRS, NORMAL ST-T, Other (No acute ischemic changes on today's EKG. The current EKG is improved over that EKG that was performed on 05/02/2020) Ordered Tests: Active Orders 24 hr Category Date Time Status AMA [Release AMA] OM.NOW Care 10/03/21 08:18 Ordered EKG-ER Only STAT Care 10/03/21 07:00 Active IV Insertion STAT Care 10/03/21 07:00 Active CBC W DIFF Stat Lab 10/03/21 07:10 Completed CMP Stat Lab 10/03/21 07:10 Completed D-DIMER QUANTITATIVE Stat Lab 10/03/21 07:10 Completed NT PRO BNP Stat Lab 10/03/21 07:10 Completed PROTIME WITH INR Stat Lab 10/03/21 07:10 Completed TROPONIN Q3H Lab 10/03/21 07:10 Completed TROPONIN Q3H Lab 10/03/21 10:15 Ordered TROPONIN Q3H Lab 10/03/21 13:15 Ordered TROPONIN Q3H Lab 10/03/21 16:15 Ordered TROPONIN Q3H Lab 10/03/21 19:15 Ordered Medication Summary Discontinued Medications Generic Name Dose Route Start Last Admin Trade Name Tawny PRN Reason Stop Dose Admin Aspirin 243 mg 10/03/21 07:00 10/03/21 07:15 Aspirin 81 Mg Tab.Chew PO 10/03/21 07:01 243 mg STAT ONE Administration Lab/Rad Data: Laboratory Result Diagrams 10/03/21 07:10 10/03/21 07:10 Laboratory Results 10/03/21 10/03/21 10/03/21 Range/Units 07:10 07:10 07:10 WBC (4.0-10.5) K/mm3 RBC (4.1-5.4) M/mm3 Hgb (12.0-16.0) gm/dl Hct (35-47) % MCV (78-100) fl MCH (26-32) pg MCHC (32-36) g/dl RDW (11.5-14.0) % Plt Count (150-450) K/mm3 MPV (7.5-11.0) fl Gran % (36.0-66.0) % Eos # (Auto) (0-0.5) Absolute Lymphs (auto) (1.0-4.6) Absolute Monos (auto) (0.0-1.3) Lymphocytes % (24.0-44.0) % Monocytes % (0.0-12.0) % Eosinophils % (0.00-5.0) % Basophils % (0.0-0.4) % Absolute Granulocytes (1.4-6.9) Basophils # (0-0.4) PT 11.1 (9.4-12.5) SECONDS INR 0.94 (0.8-3.0) D-Dimer 276 (215-500) ng/mL Sodium 139 (137-145) mmol/L Potassium 3.7 (3.5-5.1) mmol/L Chloride 104 (98-107) mmol/L Carbon Dioxide 27 (22-30) mmol/L Anion Gap 12.1 (5-15) MEQ/L BUN 6 L (7-17) mg/dL Creatinine 0.81 (0.52-1.04) mg/dL Estimated GFR > 60.0 ML/MIN Glucose 90 (74-106) mg/dL Calcium 9.4 (8.4-10.2) mg/dL Total Bilirubin 0.50 (0.2-1.3) mg/dL AST 20 (14-36) U/L ALT 15 (0-35) U/L Alkaline Phosphatase 127 H (38-126) U/L Troponin I < 0.012 (0.000-0.034) ng/mL NT-Pro-B Natriuret Pep 964 H (0-900) pg/mL Serum Total Protein 7.4 (6.3-8.2) g/dL Albumin 4.2 (3.5-5.0) g/dL 10/03/21 Range/Units 07:10 WBC 6.4 (4.0-10.5) K/mm3 RBC 4.41 (4.1-5.4) M/mm3 Hgb 13.3 (12.0-16.0) gm/dl Hct 40.7 (35-47) % MCV 92.3 (78-100) fl MCH 30.2 (26-32) pg MCHC 32.7 (32-36) g/dl RDW 13.0 (11.5-14.0) % Plt Count 252 (150-450) K/mm3 MPV 11.1 H (7.5-11.0) fl Gran % 40.5 (36.0-66.0) % Eos # (Auto) 0.25 (0-0.5) Absolute Lymphs (auto) 3.03 (1.0-4.6) Absolute Monos (auto) 0.51 (0.0-1.3) Lymphocytes % 47.3 H (24.0-44.0) % Monocytes % 8.0 (0.0-12.0) % Eosinophils % 3.9 (0.00-5.0) % Basophils % 0.3 (0.0-0.4) % Absolute Granulocytes 2.59 (1.4-6.9) Basophils # 0.02 (0-0.4) PT (9.4-12.5) SECONDS INR (0.8-3.0) D-Dimer (215-500) ng/mL Sodium (137-145) mmol/L Potassium (3.5-5.1) mmol/L Chloride (98-107) mmol/L Carbon Dioxide (22-30) mmol/L Anion Gap (5-15) MEQ/L BUN (7-17) mg/dL Creatinine (0.52-1.04) mg/dL Estimated GFR ML/MIN Glucose (74-106) mg/dL Calcium (8.4-10.2) mg/dL Total Bilirubin (0.2-1.3) mg/dL AST (14-36) U/L ALT (0-35) U/L Alkaline Phosphatase (38-126) U/L Troponin I (0.000-0.034) ng/mL NT-Pro-B Natriuret Pep (0-900) pg/mL Serum Total Protein (6.3-8.2) g/dL Albumin (3.5-5.0) g/dL - Progress Progress: improved Air Movement: good Progress Note: 10/03/21 08:19 Patient states that she wants to leave and go AGAINST MEDICAL ADVICE. She will sign the AGAINST MEDICAL ADVICE form. Patient is aware that we still have lab work pending including a 3-hour troponin level. She is aware that her symptoms and condition may worsen and she could . We are also awaiting the report of the chest x-ray. Patient states that she is tired and just wants to go home. She has very little chest pain. Counseled pt/family regarding: lab results, diagnosis, need for follow-up - Departure Departure Disposition: AMA Clinical Impression: Chest pain Condition: Stable Critical Care Time: No Referrals: LEANA RETANA MD [Primary Care Provider] - Follow up/PCP as directed Additional Instructions: Take your medication as prescribed. Return to the emergency department your symptoms worsen. Call your inspector and primary care physician today to make arranges for follow-up appointment.
[2021-10-03 07:20] LABS: Absolute Neutrophil Ct (ANC) 2.59 (1.4-6.9); Basophil (Absolute #) 0.02 (0-0.4); Eosinophil % 3.9 % (0.00-5.0); Eosinophil (Absolute #) 0.25 (0-0.5); Hematocrit 40.7 % (35-47); Hemoglobin 13.3 gm/dl (12.0-16.0); INR 0.94 (0.8-3.0); Lymphocyte (Absolute #) 3.03 (1.0-4.6); Lymphocytes % 47.3 % (24.0-44.0); Mean Cell Volume 92.3 fl (78-100); Mean Corpuscular Hemoglobin 30.2 pg (26-32); Mean Corpuscular Hgb Concent. 32.7 g/dl (32-36); Mean Platelet Volume 11.1 fl (7.5-11.0); Monocyte (Absolute #) 0.51 (0.0-1.3); Neutrophil % 40.5 % (36.0-66.0); PROTIME 11.1 SECONDS (9.4-12.5); Platelet Count 252 K/mm3 (150-450); Red Blood Count 4.41 M/mm3 (4.1-5.4); White Blood Count 6.4 K/mm3 (4.0-10.5)
[2021-10-03 07:33] LABS: ALBUMIN 4.2 g/dL (3.5-5.0); ALKALINE PHOSPHATASE 127 U/L (38-126); ANION GAP 12.1 MEQ/L (5-15); BLOOD UREA NITROGEN 6 mg/dL (7-17); CHLORIDE 104 mmol/L (98-107); Calcium 9.4 mg/dL (8.4-10.2); Carbon Dioxide 27 mmol/L (22-30); Creatinine 1 0.81 mg/dL (0.52-1.04); EST GLOMERULAR FILTRATION RATE > 60.0 ML/MIN; Glucose 90 mg/dL (74-106); NT PRO BNP 964 pg/mL (0-900); Potassium 3.7 mmol/L (3.5-5.1); SGOT/AST 20 U/L (14-36); SGPT/ALT 15 U/L (0-35); SODIUM 139 mmol/L (137-145); Total Protein 7.4 g/dL (6.3-8.2)
[2021-10-03 07:59] VITALS: BP 175/93; PULSE 55; O2SAT 98
== END 2021-10-03 08:24 | disposition left against medical advice (07) ==
LOC: ED 06:31
DX: R07.9 Chest pain, unspecified (principal); I25.10 Atherosclerotic heart disease of native coronary artery without angina pectoris; I25.2 Old myocardial infarction; I10 Essential (primary) hypertension; Z95.1 Presence of aortocoronary bypass graft; Z72.0 Tobacco use; E78.5 Hyperlipidemia, unspecified
CPT/HCPCS: 36000; 36415; 80053; 83880; 84484; 85025; 85379; 85610; 93005; 99284; A9270-GY

== ENCOUNTER 2022-11-20 08:46 | Emergency (ER) | payer MEDICARE, OTHER ==
[2022-11-20 09:25] LABS: Absolute Neutrophil Ct (ANC) 7.37 x10^3/uL (1.4-6.9); BASOPHIL % 0.3 % (0.0-0.4); Basophil (Absolute #) 0.03 x10^3/uL (0-0.4); Hematocrit 31.6 % (35-47); Hemoglobin 10.3 g/dL (12.0-16.0); IMMATURE GRAN # 0.07 x10^3u/L (0.00-0.03); IMMATURE GRAN % 0.7 % (0.00-0.4); Lymphocyte (Absolute #) 1.82 x10^3/uL (1.0-4.6); Lymphocytes % 17.7 % (24.0-44.0); Mean Cell Volume 91.1 fL (78-100); Mean Corpuscular Hemoglobin 29.7 pg (26-32); Mean Corpuscular Hgb Concent. 32.6 g/dL (32-36); Monocyte (Absolute #) 0.89 x10^3/uL (0.0-1.3); Monocytes % 8.7 % (0.0-12.0); Neutrophil % 71.6 % (36.0-66.0); Platelet Count 459 x10^3/uL (150-450); Red Blood Count 3.47 x10^6/uL (4.1-5.4); Red Cell Distribution Width 14.7 % (11.5-14.0); White Blood Count 10.3 x10^3/uL (4.0-10.5)
--- NOTE | 2022-11-20 09:26 | ERPHSYRPT ---
- History of Present Illness Time Seen by Provider: 11/20/22 08:50 Source: patient Exam Limitations: no limitations Patient Subjective Stated Complaint: PT states "I have had a cough for a couple of days and last night I coughed up a little blood and vomited this morning and it was bloody as well. I called Dr. Retana office and they told me to come here." Triage Nursing Assessment: Pt presented alert and oriented X 3, skin pwd. Pt ambulates with an upright steady gait, able to speak in clear full sentences. PT resting comfortably on the bed. Physician History: Patient here with coughing, cold, congestion. Patient states that she had an episode of coughing up blood earlier today. Therefore called her PCP who sent her into the hospital. No falls or trauma. Patient has no active chest pain right now. No active vomiting, coughing up blood. Allergies/Adverse Reactions: Penicillins Allergy (Severe, Verified 10/03/21 06:39) Swelling levofloxacin [From Levaquin] Allergy (Verified 10/03/21 06:39) Home Medications: Aspirin [Aspirin EC] 81 mg PO DAILY 04/21/20 [History] Lisinopril 10 mg [Zestril 10 MG] 10 mg PO DAILY 04/21/20 [History] Metoprolol Tartrate 50 mg PO BID 04/21/20 [History] Nitroglycerin 0.4 mg SL DAILY PRN 04/21/20 [History] Clopidogrel Bisulfate [Plavix] 75 mg PO DAILY 09/12/20 [History] Cyanocobalamin (Vitamin B-12) [Vitamin B-12] 1 tab PO DAILY 09/12/20 [History] Ezetimibe 10 mg [Zetia 10 MG] 10 mg PO DAILY 09/12/20 [History] Gabapentin [Neurontin ] 100 mg PO BID 10/03/21 [History] Omeprazole 40 mg PO DAILY 10/03/21 [History] Potassium Chloride [Klor-Con M20] 20 meq PO DAILY 10/03/21 [History] Hx Tetanus, Diphtheria Vaccination/Date Given: No Hx Influenza Vaccination/Date Given: No Hx Pneumococcal Vaccination/Date Given: No Travel Risk - International Travel Have you traveled outside of the country in past 3 weeks: No - Coronavirus Screening Are you exhibiting any of the following symptoms?: Yes Symptoms: Cough: New Onset, Shortness of Breath, Vomiting/Diarrhea Close contact with a COVID-19 positive Pt in past 14-21 Days: No - Vaccine Status Have you recieved a Covid-19 vaccination: Yes 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 - Vaccination Dates Date of 2cond Vaccination (if applicable): 01/18/21 - Past Medical History Pertinent Past Medical History: Yes Neurological History: Migraines, Seizures, Other ENT History: No Pertinent History Cardiac History: Coronary Artery Disease, High Cholesterol, Hypertension, Myocardial Infarction ([place]) Respiratory History: COPD Endocrine Medical History: No Pertinent History Musculoskeletal History: Osteoarthritis, Osteoporosis GI Medical History: GERD History: No Pertinent History Psycho-Social History: Anxiety, Depression Female Reproductive Disorders: Uterine Cancer Other Medical History: apparent seizure. scoliosis - Past Surgical History Past Surgical History: Yes Neuro Surgical History: No Pertinent History Cardiac: CABG, Cardiac Catheterization Respiratory: No Pertinent History Gastrointestinal: No Pertinent History Genitourinary: No Pertinent History Musculoskeletal: Orthopedic Surgery Female Surgical History: Other Other Surgical History: left hand. uterine cancer ablation - Social History Smoking Status: Current every day smoker How long have you smoked: 35 years Exposure to second hand smoke: No Drug Use: none Patient Lives Alone: No - Review of Systems Constitutional: No Fever, No Chills Eyes: No Symptoms Ears, Nose, & Throat: No Symptoms Respiratory: Cough, Other (Cough, cold, congestion), No Dyspnea Cardiac: No Chest Pain, No Edema, No Syncope Abdominal/Gastrointestinal: Vomiting, No Abdominal Pain, No Nausea, No Diarrhea Genitourinary Symptoms: No Dysuria Musculoskeletal: No Back Pain, No Neck Pain Skin: No Rash Neurological: No Dizziness, No Focal Weakness, No Sensory Changes Psychological: No Symptoms Endocrine: No Symptoms All Other Systems: Reviewed and Negative - Nursing Vital Signs Nursing Vital Signs: Initial Vital Signs Temperature 97.7 F 11/20/22 08:55 Pulse Rate 84 11/20/22 08:55 Respiratory Rate 20 11/20/22 08:55 Blood Pressure 106/70 11/20/22 08:55 O2 Sat by Pulse Oximetry 100 11/20/22 08:55 Pain Scale Pain Intensity 0 - Physical Exam SpO2: 100 - Course Nursing assessment & vital signs reviewed: Yes EKG Interpreted by Me: Sinus Rhythm (Sinus rhythm no obvious ischemia) Ordered Tests: Active Orders 24 hr Category Date Time Status Wastewater Process Engineer STAT Care 11/20/22 09:02 Active EKG-ER Only STAT Care 11/20/22 08:59 Active IV Insertion STAT Care 11/20/22 08:59 Active Telemetry q4h Care 11/20/22 09:56 Active CHEST 2 VIEWS (PA AND LAT) Routine Exams 11/20/22 09:51 Completed CHEST 2 VIEWS (PA AND LAT) Stat Exams 11/20/22 09:02 Taken CHEST WITH CONTRAST [CT] Stat Exams 11/20/22 10:51 Completed CBC W DIFF Stat Lab 11/20/22 09:13 Completed CMP Stat Lab 11/20/22 09:13 Completed D-DIMER QUANTITATIVE Stat Lab 11/20/22 09:13 Completed NT PRO BNPII Stat Lab 11/20/22 09:13 Completed TROPONIN Q4H Lab 11/20/22 09:15 Completed TROPONIN Q4H Lab 11/20/22 13:47 Completed TROPONIN Q4H Lab 11/20/22 17:15 Ordered Medication Summary Discontinued Medications Generic Name Dose Route Start Last Admin Trade Name Rogerioq PRN Reason Stop Dose Admin Hydrocodone Bitart/Acetaminophen 1 tab 11/20/22 10:47 11/20/22 11:07 Hydrocodone /Apap 7.5/325 Mg 1 Each Tablet PO 11/20/22 10:48 1 tab STAT ONE Administration Hydrocodone Bitart/Acetaminophen Confirm 11/20/22 10:57 Hydrocodone/Apap 5/325 1 Tab Tablet Administered 11/20/22 10:58 Dose 1 tab .ROUTE .STK-MED ONE Aspirin 324 mg 11/20/22 08:59 11/20/22 09:30 Aspirin 81 Mg Tab.Chew PO 11/20/22 09:00 324 mg STAT ONE Administration Aspirin Confirm 11/20/22 09:30 Aspirin 81 Mg Tab.Chew Administered 11/20/22 09:31 Dose 324 mg .ROUTE .STK-MED ONE Potassium Chloride 20 meq in 100 mls @ 50 mls/hr 11/20/22 09:56 11/20/22 10:30 Potassium Chloride 20 Meq In Water 100ml IV 11/20/22 11:55 50 mls/hr STAT ONE Administration Sodium Chloride 1,000 mls @ 999 mls/hr 11/20/22 10:16 11/20/22 11:41 Sodium Chloride 0.9% 1000 Ml IV 11/20/22 11:16 Infused .Q1H1M STA Infusion Sodium Chloride Confirm 11/20/22 10:22 Sodium Chloride 0.9% 1000 Ml Administered 11/20/22 10:23 Dose 1,000 mls @ ud .ROUTE .STK-MED ONE Potassium Chloride Confirm 11/20/22 10:23 Potassium Chloride 20 Meq In Water 100ml Administered 11/20/22 10:24 Dose 100 mls @ ud IV .STK-MED ONE Ondansetron HCl 4 mg 11/20/22 08:59 11/20/22 09:31 Ondansetron Hcl 4 Mg/2 Ml Vial IV 11/20/22 09:00 4 mg STAT ONE Administration Ondansetron HCl Confirm 11/20/22 09:30 Ondansetron Hcl 4 Mg/2 Ml Vial Administered 11/20/22 09:31 Dose 4 mg .ROUTE .STK-MED ONE Potassium Chloride 40 meq 11/20/22 09:56 11/20/22 10:30 Potassium Chloride Tab 10 Meq Tab PO 11/20/22 09:57 40 meq STAT ONE Administration Potassium Chloride Confirm 11/20/22 10:22 Potassium Chloride Tab 10 Meq Tab Administered 11/20/22 10:23 Dose 40 meq PO .STK-MED ONE Lab/Rad Data: Laboratory Result Diagrams 11/20/22 09:13 11/20/22 09:13 Laboratory Results 11/20/22 11/20/22 11/20/22 Range/Units 13:47 09:15 09:15 WBC (4.0-10.5) x10^3/uL RBC (4.1-5.4) x10^6/uL Hgb (12.0-16.0) g/dL Hct (35-47) % MCV (78-100) fL MCH (26-32) pg MCHC (32-36) g/dL RDW (11.5-14.0) % Plt Count (150-450) x10^3/uL MPV (7.5-11.0) fL Gran % (36.0-66.0) % Immature Gran % (Auto) (0.00-0.4) % Nucleat RBC Rel Count (0.00-0.1) % Eos # (Auto) (0-0.5) x10^3/uL Immature Gran # (Auto) (0.00-0.03) x10^3u/L Absolute Lymphs (auto) (1.0-4.6) x10^3/uL Absolute Monos (auto) (0.0-1.3) x10^3/uL Absolute Nucleated RBC (0.00-0.01) x10^3u/L Lymphocytes % (24.0-44.0) % Monocytes % (0.0-12.0) % Eosinophils % (0.00-5.0) % Basophils % (0.0-0.4) % Absolute Granulocytes (1.4-6.9) x10^3/uL Basophils # (0-0.4) x10^3/uL D-Dimer (0.0-0.50) mg/L Sodium (137-145) mmol/L Potassium (3.5-5.1) mmol/L Chloride (98-107) mmol/L Carbon Dioxide (22-30) mmol/L Anion Gap (5-15) MEQ/L BUN (7-17) mg/dL Creatinine (0.52-1.04) mg/dL Estimated GFR ML/MIN Glucose (74-106) mg/dL Calcium (8.4-10.2) mg/dL Total Bilirubin (0.2-1.3) mg/dL AST (14-36) U/L ALT (0-35) U/L Alkaline Phosphatase (38-126) U/L Troponin I < 0.012 < 0.012 (0.000-0.034) ng/mL NT-Pro-B Natriuret Pep (<300) pg/mL Serum Total Protein (6.3-8.2) g/dL Albumin (3.5-5.0) g/dL Influenza Type A Ag NEGATIVE (NEGATIVE) Influenza Type B Ag NEGATIVE (NEGATIVE) RSV (PCR) NEGATIVE (Negative) SARS-CoV-2 (PCR) NEGATIVE (NEGATIVE) 11/20/22 11/20/22 11/20/22 Range/Units 09:13 09:13 09:13 WBC 10.3 (4.0-10.5) x10^3/uL RBC 3.47 L (4.1-5.4) x10^6/uL Hgb 10.3 L (12.0-16.0) g/dL Hct 31.6 L (35-47) % MCV 91.1 (78-100) fL MCH 29.7 (26-32) pg MCHC 32.6 (32-36) g/dL RDW 14.7 H (11.5-14.0) % Plt Count 459 H (150-450) x10^3/uL MPV 10.0 (7.5-11.0) fL Gran % 71.6 H (36.0-66.0) % Immature Gran % (Auto) 0.7 H (0.00-0.4) % Nucleat RBC Rel Count 0.0 (0.00-0.1) % Eos # (Auto) 0.10 (0-0.5) x10^3/uL Immature Gran # (Auto) 0.07 H (0.00-0.03) x10^3u/L Absolute Lymphs (auto) 1.82 (1.0-4.6) x10^3/uL Absolute Monos (auto) 0.89 (0.0-1.3) x10^3/uL Absolute Nucleated RBC 0.00 (0.00-0.01) x10^3u/L Lymphocytes % 17.7 L (24.0-44.0) % Monocytes % 8.7 (0.0-12.0) % Eosinophils % 1.0 (0.00-5.0) % Basophils % 0.3 (0.0-0.4) % Absolute Granulocytes 7.37 H (1.4-6.9) x10^3/uL Basophils # 0.03 (0-0.4) x10^3/uL D-Dimer 0.57 H (0.0-0.50) mg/L Sodium 141 (137-145) mmol/L Potassium 2.9 L* (3.5-5.1) mmol/L Chloride 106 (98-107) mmol/L Carbon Dioxide 24 (22-30) mmol/L Anion Gap 15.0 (5-15) MEQ/L BUN 8 (7-17) mg/dL Creatinine 0.79 (0.52-1.04) mg/dL Estimated GFR > 60.0 ML/MIN Glucose 117 H (74-106) mg/dL Calcium 8.7 (8.4-10.2) mg/dL Total Bilirubin 0.90 (0.2-1.3) mg/dL AST 46 H (14-36) U/L ALT 30 (0-35) U/L Alkaline Phosphatase 109 (38-126) U/L Troponin I (0.000-0.034) ng/mL NT-Pro-B Natriuret Pep 491 (<300) pg/mL Serum Total Protein 8.2 (6.3-8.2) g/dL Albumin 3.8 (3.5-5.0) g/dL Influenza Type A Ag (NEGATIVE) Influenza Type B Ag (NEGATIVE) RSV (PCR) (Negative) SARS-CoV-2 (PCR) (NEGATIVE) - Progress Progress: improved Progress Note: 11/20/22 09:24 differential diagnosis includes:PNA, STEMI, NSTEMI, other infection,musculoskeletal pain, pneumothorax - We'll obtain basic labs, fluids, EKG, troponin, chest x-ray - I feel comfortable with one time negative troponin given symptoms have improved and started greater then 6 hours ago. - EKG shows no ST changes - my read. See full read below. - O2 saturations consistently greater than 95%. - CXR shows lung mass- CT chest shows large lung mass. Most likely malignancy. 11/20/22 14:33 Patient also has hypokalemia. Therefore this was treated with IV potassium and oral potassium. CT scan as above most likely new onset lung cancer. I spoke with patient's primary care physician, Dr. Retana. He is aware. He did not recommend admission today. He did not recommend admission for potassium or i npatient work-up. He stated patient can have an outpatient work-up. Therefore, I did call pulmonology, Dr. Hernandez. I arranged for a follow-up visit on November 29 AM. This will be for continued staging, possible biopsy, work-up of potential new cancer. I did go over all of this with the patient. She states understanding will follow-up. Discussed with : Joi Will see patient in: office Counseled pt/family regarding: lab results, diagnosis, need for follow-up, rad results, smoking cessation - Departure Departure Disposition: Home Clinical Impression: Mass of lung, Coughing up blood, Shortness of breath, Hypokalemia Condition: Stable Critical Care Time: No Referrals: LEANA RETANA MD [Primary Care Provider] - Follow up/PCP as directed Instructions: Nausea and Vomiting, Adult (DC) Additional Instructions: You have follow up with DR. Mary MD at 9 am on November 29 Address: [address] [place] [address] [place] [address] Do not miss appointment, call to reschedule
[2022-11-20] MEDS: BABY ASPIRIN 81 MG CHEW PO ONE (09:30)
[2022-11-20] MEDS ORDERED: Zofran 4 MG/2 ML VIAL ONE (09:30)
[2022-11-20] MEDS ORDERED: BABY ASPIRIN 81 MG CHEW ONE (09:30)
[2022-11-20] MEDS: Zofran 4 MG/2 ML VIAL IV ONE (09:31)
[2022-11-20 09:51] LABS: ALBUMIN 3.8 g/dL (3.5-5.0); ALKALINE PHOSPHATASE 109 U/L (38-126); BLOOD UREA NITROGEN 8 mg/dL (7-17); CHLORIDE 106 mmol/L (98-107); Calcium 8.7 mg/dL (8.4-10.2); Carbon Dioxide 24 mmol/L (22-30); Creatinine 1 0.79 mg/dL (0.52-1.04); EST GLOMERULAR FILTRATION RATE > 60.0 ML/MIN; Glucose 117 mg/dL (74-106); NT PRO BNPII 491 pg/mL (<300); SGOT/AST 46 U/L (14-36); SGPT/ALT 30 U/L (0-35); SODIUM 141 mmol/L (137-145); Total Protein 8.2 g/dL (6.3-8.2)
[2022-11-20 09:55] LABS: Potassium 2.9 mmol/L (3.5-5.1)
[2022-11-20 09:56] LABS: INFLUENZA A NEGATIVE (NEGATIVE); INFLUENZA B NEGATIVE (NEGATIVE); RESPIRATORY SYNCTIAL VIRUS NEGATIVE (Negative); SARS-CoV-2 Xpert Express NEGATIVE (NEGATIVE)
--- NOTE | 2022-11-20 10:03 | XRAY ---
Indication: Hemoptysis. Comparison: April 18, 2021 PA/lateral chest again demonstrates COPD with a few left lung calcified granulomas. New right mid to upper lung peripheral masslike opacity with air-fluid leveling better evaluated with CT chest. Heart not enlarged again with CABG. Bony thorax intact again with osteopenia, degenerative changes, and scoliosis.
[2022-11-20] MEDS ORDERED: Sodium Chloride 0.9% 1000 ML 1,000 ML ONE (10:22)
[2022-11-20] MEDS ORDERED: Klor Con PO ONE (10:22)
[2022-11-20] MEDS ORDERED: POTASSIUM CHLORIDE 20 mEq IN WATER 100ML 100 ML IV ONE (10:23)
[2022-11-20] MEDS: Klor Con PO ONE (10:30)
[2022-11-20] MEDS: Sodium Chloride 0.9% 1000 ML 1,000 ML IV STA (10:30)
[2022-11-20] MEDS: POTASSIUM CHLORIDE 20 mEq IN WATER 100ML 20 MEQ/100 ML BAG IV ONE (10:30)
[2022-11-20] MEDS ORDERED: NORCO 5/325 MG ONE (10:57)
[2022-11-20] MEDS: NORCO 7.5/325 MG TAB PO ONE (11:07)
--- NOTE | 2022-11-20 12:20 | XRAY ---
Indication: Hemoptysis. Right lung masslike opacity on same-day chest radiograph. Multiple contiguous axial images obtained through the chest using 80 cc Isovue 370 contrast and PE protocol. Comparison: April 21, 2020 Good opacification of the pulmonary arteries to include the lobar and segmental branches. No pulmonary embolus. Heart not enlarged with interval CABG surgery. Aorta again mildly arteriosclerotic without aneurysm/dissection. New right suprahilar lymphadenopathy measuring at least 2.5 x 1.7 cm. Lungs demonstrates new large predominantly inferior right upper lobe peripheral spiculated cavitary mass with air-fluid leveling measuring at least 5.5 x 4.1 x 6.2 cm worrisome for malignancy. Mass further extends into the adjacent right middle lobe. Tumor wall thickness is at least 1 cm. Additional new subcentimeter noncalcified nodularities in the posterior right upper lobe concerning for metastasis. Remaining lungs again demonstrates mild diffuse pulmonary emphysema, tiny left lung calcified and noncalcified granulomas, and minimal bilateral dependent atelectasis. No effusion. Bony thorax intact again with mild degenerative changes to the spine and mild levoscoliosis. New sternotomy wires. Limited upper abdomen including adrenal glands are unremarkable. Impression: 1. Continued negative pulmonary embolus. 2. New large right upper and right middle lobe spiculated cavitary mass as detailed worrisome for malignancy (including squamous cell carcinoma,adenocarcinoma or metastasis). Also additional new subcentimeter irregular right upper lobe noncalcified nodularities and right hilar lymphadenopathy, probable metastasis. 3. Again chronic findings including pulmonary emphysema, arteriosclerotic disease, chronic bony findings, and old granulomatous disease.
[2022-11-20 13:02] VITALS: PULSE 67
[2022-11-20 14:48] VITALS: BP 96/61
[2022-11-20 15:04] VITALS: O2SAT 97
== END 2022-11-20 15:02 | disposition home or self-care (01) ==
LOC: ED 08:46
DX: R91.8 Other nonspecific abnormal finding of lung field (principal); R04.2 Hemoptysis; R06.02 Shortness of breath; E87.6 Hypokalemia; E78.5 Hyperlipidemia, unspecified; I10 Essential (primary) hypertension; Z79.02 Long term (current) use of antithrombotics/antiplatelets; Z79.899 Other long term (current) drug therapy; Z85.42 Personal history of malignant neoplasm of other parts of uterus; Z72.0 Tobacco use; Z20.828 Contact with and (suspected) exposure to other viral communicable diseases
CPT/HCPCS: 0241U; 36000; 36415; 71046; 71260; 80053; 83880; 84484; 85025; 85379; 93005; 93041; 96360; 96374; 99284; J2405; J3480; A9270-GY

== ENCOUNTER 2022-11-27 06:25 | Emergency (ER) | payer MEDICARE ==
[2022-11-27 06:37] VITALS: BP 122/73; PULSE 100; O2SAT 95
[2022-11-27] MEDS ORDERED: Zofran 4 MG/2 ML VIAL IV ONE (06:55)
[2022-11-27] MEDS ORDERED: Sodium Chloride 0.9% 1000 ML 1,000 ML IV STA (06:55)
[2022-11-27] MEDS ORDERED: ZOFRAN ODT 4 MG PO ONE (07:08)
[2022-11-27] MEDS ORDERED: ZOFRAN ODT 4 MG ONE (07:10)
--- NOTE | 2022-11-27 07:25 | ERPHSYRPT ---
- History of Present Illness Time Seen by Provider: 11/27/22 07:14 Source: patient Exam Limitations: no limitations Patient Subjective Stated Complaint: Pt reports "I have been vomiting since I was last at the hospital about one week ago. I can't keep anything down, I keep vomiting and everyone keeps telling me I need to come to the ER. I am scared and don't know what to do." Triage Nursing Assessment: Pt alert and oriented x3. No apparent respiratory distress. Skin w/p/d. Ambulated to ED cot without difficulty. Bowel sounds present. Abdomen soft/nontender/flat. No vomiting at time of triage. Physician History: Patient here with vomiting. States has been going on for 1 week. Approximately 1 week ago patient was diagnosed with probable lung cancer. This is a new onset lung cancer. She has not been worked up for this. Patient states she has had difficulty keeping anything down. No falls no trauma. No fever no chills. No new growing up of blood. No chest pain, shortness of breath, abdominal pain Allergies/Adverse Reactions: Penicillins Allergy (Severe, Verified 11/27/22 06:26) Swelling levofloxacin [From Levaquin] Allergy (Verified 11/27/22 06:26) Home Medications: Aspirin [Aspirin EC] 81 mg PO DAILY 04/21/20 [History] Lisinopril 10 mg [Zestril 10 MG] 10 mg PO DAILY 04/21/20 [History] Metoprolol Tartrate 50 mg PO BID 04/21/20 [History] Nitroglycerin 0.4 mg SL DAILY PRN 04/21/20 [History] Clopidogrel Bisulfate [Plavix] 75 mg PO DAILY 09/12/20 [History] Cyanocobalamin (Vitamin B-12) [Vitamin B-12] 1 tab PO DAILY 09/12/20 [History] Ezetimibe 10 mg [Zetia 10 MG] 10 mg PO DAILY 09/12/20 [History] Gabapentin [Neurontin ] 100 mg PO BID 10/03/21 [History] Omeprazole 40 mg PO DAILY 10/03/21 [History] Potassium Chloride [Klor-Con M20] 20 meq PO DAILY 10/03/21 [History] Hx Tetanus, Diphtheria Vaccination/Date Given: No Hx Influenza Vaccination/Date Given: No Hx Pneumococcal Vaccination/Date Given: No Travel Risk - International Travel Have you traveled outside of the country in past 3 weeks: No - Coronavirus Screening Are you exhibiting any of the following symptoms?: Yes Symptoms: Cough: New Onset, Shortness of Breath, Vomiting/Diarrhea Close contact with a COVID-19 positive Pt in past 14-21 Days: No - Vaccine Status Have you recieved a Covid-19 vaccination: Yes Gas Engineer: Moderna - Vaccination Dates Date of 2cond Vaccination (if applicable): 01/18/21 - Review of Systems Constitutional: No Fever, No Chills Eyes: No Symptoms Ears, Nose, & Throat: No Symptoms Respiratory: No Cough, No Dyspnea Cardiac: No Chest Pain, No Edema, No Syncope Abdominal/Gastrointestinal: Vomiting, No Abdominal Pain, No Nausea, No Diarrhea Genitourinary Symptoms: No Dysuria Musculoskeletal: No Back Pain, No Neck Pain Skin: No Rash Neurological: No Dizziness, No Focal Weakness, No Sensory Changes Psychological: No Symptoms Endocrine: No Symptoms All Other Systems: Reviewed and Negative - Past Medical History Pertinent Past Medical History: Yes Neurological History: Migraines, Seizures, Other ENT History: No Pertinent History Cardiac History: Coronary Artery Disease, High Cholesterol, Hypertension, Myocardial Infarction ([place]) Respiratory History: COPD Endocrine Medical History: No Pertinent History Musculoskeletal History: Osteoarthritis, Osteoporosis GI Medical History: GERD History: No Pertinent History Psycho-Social History: Anxiety, Depression Female Reproductive Disorders: Uterine Cancer Other Medical History: apparent seizure. scoliosis - Past Surgical History Past Surgical History: Yes Neuro Surgical History: No Pertinent History Cardiac: CABG, Cardiac Catheterization Respiratory: No Pertinent History Gastrointestinal: No Pertinent History Genitourinary: No Pertinent History Musculoskeletal: Orthopedic Surgery Female Surgical History: Other Other Surgical History: left hand. uterine cancer ablation - Social History Smoking Status: Current every day smoker How long have you smoked: 35 Exposure to second hand smoke: No Drug Use: none Patient Lives Alone: Yes - Nursing Vital Signs Nursing Vital Signs: Initial Vital Signs Temperature 98.4 F 11/27/22 06:29 Pulse Rate 100 H 11/27/22 06:29 Respiratory Rate 17 11/27/22 06:29 Blood Pressure 122/73 11/27/22 06:29 O2 Sat by Pulse Oximetry 95 11/27/22 06:29 Pain Scale Pain Intensity 6 - Physical Exam General Appearance: no apparent distress, alert Eye Exam: PERRL/EOMI, eyes nml inspection Ears, Nose, Throat Exam: normal ENT inspection, TMs normal, pharynx normal, moist mucous membranes Neck Exam: normal inspection, non-tender, supple, full range of motion Respiratory Exam: normal breath sounds, lungs clear, No respiratory distress Cardiovascular Exam: regular rate/rhythm, normal heart sounds, normal peripheral pulses Gastrointestinal/Abdomen Exam: soft, normal bowel sounds, No tenderness, No mass Back Exam: normal inspection, normal range of motion, No CVA tenderness, No vertebral tenderness Extremity Exam: normal inspection, normal range of motion, pelvis stable Neurologic Exam: alert, oriented x 3, cooperative, normal mood/affect, nml cerebellar function, nml station & gait, sensation nml, No motor deficits Skin Exam: normal color, warm, dry, No rash Lymphatic Exam: No adenopathy SpO2: 95 - Course Nursing assessment & vital signs reviewed: Yes Ordered Tests: Active Orders 24 hr Category Date Time Status IV Insertion STAT Care 11/27/22 06:55 Completed UA W/RFX UR CULTURE Stat Lab 11/27/22 07:06 Completed Medication Summary Discontinued Medications Generic Name Dose Route Start Last Admin Trade Name Rogerioq PRN Reason Stop Dose Admin Sodium Chloride 1,000 mls @ 999 mls/hr 11/27/22 06:55 11/27/22 07:08 Sodium Chloride 0.9% 1000 Ml IV 11/27/22 07:55 Not Given .Q1H1M STA Ondansetron HCl 4 mg 11/27/22 06:55 11/27/22 07:08 Ondansetron Hcl 4 Mg/2 Ml Vial IV 11/27/22 06:56 Not Given STAT ONE Ondansetron HCl 4 mg 11/27/22 07:08 11/27/22 07:10 Zofran 4 Mg/Udtablet Orally Disintegrating PO 11/27/22 07:09 4 mg STAT ONE Administration Ondansetron HCl Confirm 11/27/22 07:10 Zofran 4 Mg/Udtablet Orally Disintegrating Administered 11/27/22 07:11 Dose 4 mg .ROUTE .STIstpika-MED ONE Lab/Rad Data: Laboratory Results 11/27/22 Range/Units 07:06 Urine Color Yellow (Yellow) Urine Appearance Clear (Clear) Urine pH 5.0 (4.6-8.0) Ur Specific Sanders 1.025 (1.005-1.030) Urine Protein 30 (Negative) Urine Glucose (UA) Negative (Negative) mg/dL Urine Ketones Trace A (Negative) Urine Blood Negative (Negative) Urine Nitrite Negative (Negative) Urine Bilirubin Negative (Negative) Urine Urobilinogen 1.0 A (0.2) mg/dL Ur Leukocyte Esterase Trace A (Negative) U Hyaline Cast (Auto) 6-10 A (0-2) /LPF Urine Microscopic RBC 0-2 (0-5) /HPF Urine Microscopic WBC 3-5 (0-5) /HPF Ur Epithelial Cells Few (None Seen) /HPF Urine Bacteria None Seen (None Seen) /HPF Urine Culture Reflexed NO (NO) - Progress Progress: improved Progress Note: 11/27/22 09:24 I did recommend a work-up today given patient's nausea, vomiting. I recommended IV, basic labs, fluids, possible CT abdomen. Patient ultimately declined. Stating that she has follow-up with pulmonology on Friday. She would just like oral Zofran. Risks and benefits were explained to the patient. Patient still declines work-up. Therefore, we will discharge patient home. She will return here for new or changing symptoms. - Departure Departure Disposition: Home Clinical Impression: Vomiting Condition: Stable Critical Care Time: No Referrals: LEANA RETANA MD [Primary Care Provider] - Follow up/PCP as directed Instructions: Nausea and Vomiting, Adult (DC) Prescriptions: Ondansetron ODT 4 MG [Zofran Odt 4 mg] 4 mg PO Q6H PRN PRN #10 tablet PRN Reason: Vomiting
[2022-11-27 07:32] LABS: Appearance Clear (Clear); Bacteria None Seen /HPF (None Seen); Bilirubin Negative (Negative); Blood Negative (Negative); Epithelial Cells Few /HPF (None Seen); Glucose, Urine Negative (Negative); Ketones Trace (Negative); Leukocyte Esterase Trace (Negative); Nitrite Negative (Negative); Protein,Urine Dip 30 (Negative); RBC 0-2 /HPF (0-5); Specific Gravity 1.025 (1.005-1.030)
[2022-11-27 07:37] LABS: ADD URINE CULTURE? NO (NO)
== END 2022-11-27 07:33 | disposition home or self-care (01) ==
LOC: ED 06:25
DX: R11.2 Nausea with vomiting, unspecified (principal); E78.5 Hyperlipidemia, unspecified; I10 Essential (primary) hypertension; Z79.02 Long term (current) use of antithrombotics/antiplatelets; Z79.899 Other long term (current) drug therapy; Z72.0 Tobacco use
CPT/HCPCS: 81001; 99282; Q0162